=== PATIENT | female | born 1940 | race Caucasian/White ===

== ENCOUNTER → 2019-05-03 11:23 | Outpatient (CLI) | payer MEDICARE, OTHER, SELFPAY ==
[2018-12-12 13:04] VITALS: BMI 26.9
[2019-05-03 15:48] LABS: Absolute Neutrophil Count 3.6 X10^3/uL (2.0-7.7); Basophil# 0.07 X10^3/uL; Basophil% 1.2 % (0-1); Eosinophil# 0.14 X10^3/uL; Eosinophils% 2.4 % (0-5); Hematocrit 38.1 % (37-47); Hemoglobin 12.6 g/dL (12.0-15.0); Mean Corp Hgb Conc 33.1 g/dL (32-36); Mean Corpuscular Hgb 30.1 pg (27.0-32.0); Mean Corpuscular Volume 90.9 fL (81-99); Mean Platelet Vol. 8.6 fl (6.2-12.0); Monocyte# 0.39 X10^3/uL; Monocyte% 6.7 % (0-10); NRBC Flagged by Analyzer 0 % (0-5); Neutrophil # 3.55 X10^3/uL (2.7-7.7); Neutrophil % 60.5 % (47-70); Platelet Count 284 K/mm3 (150-450); RBC Distribution Width CV 12.5 % (11.6-14.6); RBC Distribution Width SD 41.1 fl (35.1-43.9); Red Blood Count 4.19 M/mm3 (4.2-5.4); White Blood Count 5.9 K/mm3 (4.4-11.0)
[2019-05-03 16:59] LABS: Anion Gap 6 (5-15); BUN 16 mg/dL (7-18); BUN/Creat Ratio 16.2 RATIO (10-20); Calcium,Total 9.1 mg/dL (8.5-10.1); Chloride 109 mmol/L (98-107); Creatinine, Serum 0.99 mg/dL (0.55-1.02); EST Glomerular Filtration Rate 58 mL/min (>60); Est Glom Filt Rate - Afr Amer 70 mL/min (>60); Glucose 92 mg/dL (74-106); Potassium 4.7 mmol/L (3.5-5.1); Sodium Level 143 mmol/L (136-145); Thyroid Stim Hormone (TSH) 5.34 uIU/mL (0.358-3.74)
== END ==
PROVIDERS: Family Provider Family Medicine; PCP Family Medicine; Visit Provider Family Medicine
DX: I10 Essential (primary) hypertension (principal); F32.9 Major depressive disorder, single episode, unspecified
CPT/HCPCS: 36415; 80048; 84443; 85025

== ENCOUNTER → 2019-05-15 10:26 | Outpatient (CLI) | payer MEDICARE, OTHER, SELFPAY ==
[2018-12-12 13:04] VITALS: BMI 26.9
--- NOTE | 2019-05-15 10:27 | BI_ITS ---
MAMMOGRAPHY - BILATERAL SCREENING REASON FOR EXAM: Female, 79 years old. Routine annual screening examination. PERTINENT HISTORY: Non-contributory. History of remote bilateral excisional breast biopsies. TECHNIQUE: Digital bilateral breast rona (3D mammographic acquisition) in the CC and MLO projections. 2-D mediolateral oblique (MLO) and craniocaudad (CC) views of both breasts were obtained. CAD: Full Field Digital Mammography with Computer Added Detection was performed. COMPARISON: Comparison is made with prior study dated July 23, 2015 and February 12, 2014. FINDINGS: Breast Composition: The breasts are heterogeneously dense, which may obscure small masses. There are no dominant masses or suspicious calcifications. Stable 1 cm calcified nodule in the deep midportion of the right breast in keeping with fibroadenoma. Stable scattered bilateral secretory calcifications. Stable small bilateral axillary lymph nodes. No other significant abnormalities are identified. There has been no significant change since the prior study. BI/SCREEN MAMM (CAD) W/RONA BILAT IMPRESSION: Stable bilateral screening mammogram. Yearly follow-up mammogram recommended. (A) ASSESSMENT CATEGORY: BIRADS Category 2: Benign. A letter regarding these results will be sent to the patient by the facility within 30 days. Approximately 10% of breast cancers are not detected by mammography. A normal mammogram should not delay biopsy of a clinically suspicious abnormality. [id number] Electronically Signed: Jem Rivera, at 12:29 EDT , Service support ,
== END ==
PROVIDERS: Family Provider Family Medicine; PCP Family Medicine; Referring Provider Family Medicine; Visit Provider Family Medicine
DX: Z12.31 Encounter for screening mammogram for malignant neoplasm of breast (principal)
CPT/HCPCS: 77063; 77067

== ENCOUNTER → 2019-06-23 14:51 | Outpatient (CLI) | payer MEDICARE, OTHER, SELFPAY ==
[2018-12-12 13:04] VITALS: BMI 26.9
[2019-06-23 16:41] LABS: T4 Free Direct 0.79 ng/dL (0.76-1.46); Thyroid Stim Hormone (TSH) 2.88 uIU/mL (0.358-3.74)
== END ==
PROVIDERS: Family Provider Family Medicine; PCP Family Medicine; Visit Provider Family Medicine
DX: E03.9 Hypothyroidism, unspecified (principal)
CPT/HCPCS: 36415; 84439; 84443

== ENCOUNTER → 2020-02-07 12:40 | Outpatient (CLI) | payer MEDICARE, OTHER, SELFPAY ==
[2020-01-24 11:43] VITALS: BMI 29.3
== END ==
PROVIDERS: PCP Family Medicine; Referring Provider Internal Medicine Cardiovascular Disease; Visit Provider Internal Medicine Cardiovascular Disease
DX: I48.91 Unspecified atrial fibrillation (principal); I49.1 Atrial premature depolarization; I10 Essential (primary) hypertension
CPT/HCPCS: 93225; 93226

== ENCOUNTER → 2020-02-08 13:23 | Outpatient (CLI) | payer MEDICARE, OTHER, SELFPAY ==
[2020-01-24 11:43] VITALS: BMI 29.3
--- NOTE | 2020-02-08 13:25 | ECHOCS_ITS ---
Reason For Study: A. fib Procedure This was a 2D Doppler, Color Flow transthoracic echocardiogram. The study was technically difficult. Exam performed in department. Left Ventricle Normal LV size. Left ventricular systolic function is normal. The estimated ejection fraction is 65 %. Stage 1 diastolic dysfunction. No regional wall motion abnormalities noted. Right Ventricle Normal RV size. Normal systolic function. Atria Normal left atrium. Normal right atrium. Mitral Valve Normal mitral valve. Tricuspid Valve Normal tricuspid valve. Mild (1+) tricuspid valve insufficiency. Pulmonary artery systolic pressure is 26 mmHg. Aortic Valve Normal aortic valve. Trivial eccentric aortic valve insufficiency. Pulmonic Valve Normal pulmonic valve. Great Vessels Calcified aortic root. The pulmonary artery is normal size. Normal inferior vena cava. Pericardium/Pleural No pericardial effusion. Medication 22 gauge I.V. with prn adaptor inserted into right arm. Diluted definity 2ml given slow IV push to enhance endocardial definition. MMode/2D Measurements & Calculations LVIDd: 3.9 cm IVSd: 1.1 cm Ao root diam: 2.8 cm LVIDs: 1.9 cm LVPWd: 0.97 cm RVDd: 3.1 cm FS: 51.7 % LAV(MOD-bp): 33.5 ml LA A4 area: 13.5 cm2 LA dimension(2D): 2.9 cm LAV(MOD-bp) Indexed: 17.5 ml/m2 LAV(MOD-sp2): 34.2 ml LAV(MOD-sp4): 32.0 ml RA A4 area: 9.2 cm2 Doppler Measurements & Calculations MV E max manuel: 55.1 cm/sec Lat Peak E' Manuel: 7.9 cm/sec Med Peak E' Manuel: 3.9 cm/sec MV A max manuel: 104.2 cm/sec E/E' lat: 7.0 E/E' med: 14.0 MV E/A: 0.53 Ao V2 max: 156.0 cm/sec LV V1 max: 124.6 cm/sec PA V2 max: 108.6 cm/sec Ao max P.3 mmHg LV V1 max P.4 mmHg TR max manuel: 243.4 cm/sec TR max P.7 mmHg Interpretation Summary Normal LV size. Left ventricular systolic function is normal. The estimated ejection fraction is 65 %. Stage 1 diastolic dysfunction. Contrast injection was performed. Ordering Physician: Phani Wan Referring Physician: Yuriy Davis Performed By: Liza Cooley RDCS
== END ==
PROVIDERS: PCP Family Medicine; Referring Provider Internal Medicine Cardiovascular Disease; Visit Provider Internal Medicine Cardiovascular Disease
DX: I48.91 Unspecified atrial fibrillation (principal); I48.92 Unspecified atrial flutter; R07.89 Other chest pain
CPT/HCPCS: 93306; Q9957; A4216; C8929

== ENCOUNTER → 2020-05-06 10:34 | Outpatient (CLI) | payer MEDICARE, OTHER, SELFPAY ==
[2020-01-24 11:43] VITALS: BMI 29.3
[2020-05-06 12:10] LABS: Absolute Lymphocyte Count 1.42 X10^3/uL (0.83-4.51); Absolute Neutrophil Count 4.4 X10^3/uL (2.0-7.7); Basophil# 0.07 X10^3/uL; Basophil% 1.1 % (0-1); Eosinophil# 0.17 X10^3/uL; Eosinophils% 2.6 % (0-5); Hematocrit 40.7 % (37-47); Hemoglobin 13.4 g/dL (12.0-15.0); Lymphocyte # 1.42 X10^3/ul (4.0); Lymphocyte % 21.8 % (19-41); Mean Corp Hgb Conc 32.9 g/dL (32-36); Mean Corpuscular Hgb 29.3 pg (27.0-32.0); Mean Corpuscular Volume 89.1 fL (81-99); Mean Platelet Vol. 8.8 fl (6.2-12.0); Monocyte# 0.42 X10^3/uL; Monocyte% 6.4 % (0-10); NRBC Flagged by Analyzer 0 % (0-5); Neutrophil # 4.42 X10^3/uL (2.7-7.7); Neutrophil % 67.8 % (47-70); Platelet Count 320 K/mm3 (150-450); RBC Distribution Width CV 12.3 % (11.6-14.6); RBC Distribution Width SD 40.5 fl (35.1-43.9); Red Blood Count 4.57 M/mm3 (4.2-5.4); White Blood Count 6.5 K/mm3 (4.4-11.0)
[2020-05-06 12:45] LABS: Anion Gap 6 (5-15); BUN 13 mg/dL (7-18); BUN/Creat Ratio 12.5 RATIO (10-20); Calcium,Total 9.5 mg/dL (8.5-10.1); Chloride 109 mmol/L (98-107); Creatinine, Serum 1.04 mg/dL (0.55-1.02); EST Glomerular Filtration Rate 54 mL/min (>60); Est Glom Filt Rate - Afr Amer 66 mL/min (>60); Glucose 126 mg/dL (74-106); Magnesium 2.2 mg/dL (1.6-2.6); Sodium Level 140 mmol/L (136-145); T4 Free Direct 0.87 ng/dL (0.76-1.46); Thyroid Stim Hormone (TSH) 5.09 uIU/mL (0.358-3.74)
== END ==
PROVIDERS: PCP Family Medicine; Visit Provider Family Medicine
DX: I10 Essential (primary) hypertension (principal); E03.9 Hypothyroidism, unspecified; I49.9 Cardiac arrhythmia, unspecified
CPT/HCPCS: 36415; 80048; 83735; 84439; 84443; 85025

== ENCOUNTER → 2020-05-10 13:37 | Outpatient (CLI) | payer MEDICARE, OTHER, SELFPAY ==
[2020-01-24 11:43] VITALS: BMI 29.3
--- NOTE | 2020-05-10 13:42 | CT_ITS ---
STUDY: CT CHEST WITHOUT CONTRAST REASON FOR EXAM: Female, 80 years old. PULMONARY NODULES F/U RADIATION DOSAGE (If Supplied By Facility): CTDIvol = ( 17.50 ) mGy, DLP = ( 609.29 ) mGycm TECHNIQUE: Transaxial imaging was performed without the administration of intravenous contrast material. Multiplanar coronal and sagittal images were reformatted. Individualized dose optimization techniques were used for this CT. COMPARISON: Comparison is made with prior study dated 07/18/2015. FINDINGS: Stable 4 mm nodule in the anterior aspect of the right upper lobe as seen on axial image number 1:15. 4 mm noncalcified nodule in the anterior aspect of the right middle lobe. Stable minimal increased markings in the anterior lateral aspect of the lingular segment of the left upper lobe suggestive of scarring. Stable scattered subcentimeter noncalcified nodules which are pleural based in both lower lobes. There is no demonstrated pleural abnormality. There are calcifications of the coronary arteries. Normal mediastinum. Normal hilar regions. Normal unenhanced pulmonary arteries. There is atherosclerotic calcification of the aortic arch . There are multi-level degenerative changes of the thoracic spine. There is no demonstrated abnormality of the visualized upper abdomen. CT/Chest without Contrast IMPRESSION: Stable examination. Electronically Signed: Jem Rivera, at 14:28 EDT , Service support ,
== END ==
PROVIDERS: PCP Family Medicine; Referring Provider Family Medicine; Visit Provider Family Medicine
DX: R93.89 Abnormal findings on diagnostic imaging of other specified body structures (principal)
CPT/HCPCS: 71250

== ENCOUNTER → 2020-05-24 11:34 | Outpatient (CLI) | payer MEDICARE, OTHER, SELFPAY ==
[2020-01-24 11:43] VITALS: BMI 29.3
--- NOTE | 2020-05-24 11:37 | BI_ITS ---
MAMMOGRAPHY - BILATERAL SCREENING REASON FOR EXAM: Female, 80 years old. Routine annual screening examination. PERTINENT HISTORY: Non-contributory. Remote bilateral excisional breast biopsies. TECHNIQUE: Digital bilateral breast rona (3D mammographic acquisition) in the CC and MLO projections. 2-D mediolateral oblique (MLO) and craniocaudad (CC) views of both breasts were obtained. CAD: Full Field Digital Mammography with Computer Added Detection was performed. COMPARISON: Comparison is made with prior study dated 05/15/2019 and 07/23/2015. FINDINGS: Breast Composition: The breasts are heterogeneously dense, which may obscure small masses. There are no dominant masses or suspicious calcifications. Scattered benign-appearing bilateral calcifications. Stable benign-appearing axillary lymph nodes. Stable calcified fibroadenoma in the deep midportion of the right breast. No other significant abnormalities are identified. There has been no significant change since the prior study. BI/SCREEN MAMM (CAD) W/RONA BILAT IMPRESSION: Stable bilateral screening mammogram. Yearly follow-up mammogram recommended. (A) ASSESSMENT CATEGORY: BIRADS Category 2: Benign. A letter regarding these results will be sent to the patient by the facility within 30 days. Approximately 10% of breast cancers are not detected by mammography. A normal mammogram should not delay biopsy of a clinically suspicious abnormality. [id number] Electronically Signed: Jem Rivera, at 12:48 EDT , Service support ,
== END ==
PROVIDERS: PCP Family Medicine; Referring Provider Family Medicine; Visit Provider Family Medicine
DX: Z12.31 Encounter for screening mammogram for malignant neoplasm of breast (principal)
CPT/HCPCS: 77063; 77067

== ENCOUNTER → 2021-07-01 12:13 | Outpatient (CLI) | payer MEDICARE, OTHER, SELFPAY ==
--- NOTE | 2021-07-01 12:17 | BI_ITS ---
MAMMOGRAPHY - BILATERAL SCREENING REASON FOR EXAM: Female, 81 years old. Routine annual screening examination. PERTINENT HISTORY: Non-contributory. Remote bilateral excisional breast biopsies. TECHNIQUE: Digital bilateral breast rona (3D mammographic acquisition) in the CC and MLO projections. 2-D mediolateral oblique (MLO) and craniocaudad (CC) views of both breasts were obtained. CAD: Full Field Digital Mammography with Computer Added Detection was performed. COMPARISON: Comparison is made with prior study dated 05/24/2020 and 05/15/2019. FINDINGS: Breast Composition: The breasts are heterogeneously dense, which may obscure small masses. There are no dominant masses or suspicious calcifications. Stable right lateral secretory calcifications. Stable benign-appearing bilateral axillary lymph nodes. Stable calcified fibroadenoma and the deep midportion of the right breast No other significant abnormalities are identified. There has been no significant change since the prior study. BI/SCRN MAMM (CAD)W/RONA BILAT IMPRESSION: Stable bilateral screening mammogram. Yearly follow-up mammogram recommended. (A) ASSESSMENT CATEGORY: BIRADS Category 2: Benign. A letter regarding these results will be sent to the patient by the facility within 30 days. Approximately 10% of breast cancers are not detected by mammography. A normal mammogram should not delay biopsy of a clinically suspicious abnormality. [id number] Electronically Signed: Jem Rivera MD at 10:23 EDT , Service support ,
== END ==
PROVIDERS: PCP Family Medicine; Referring Provider Family Medicine; Visit Provider Family Medicine
DX: Z12.31 Encounter for screening mammogram for malignant neoplasm of breast (principal)
CPT/HCPCS: 77063; 77067

== ENCOUNTER → 2022-07-07 | Outpatient (CLI) | payer MEDICARE, OTHER, SELFPAY ==
[2022-07-07 12:33] LABS: Absolute Lymphocyte Count 2.23 X10^3/uL (0.83-4.51); Absolute Neutrophil Count 3.8 X10^3/uL (2.0-7.7); Basophil# 0.07 X10^3/uL; Eosinophil# 0.25 X10^3/uL; Eosinophils% 3.7 % (0-5); Hematocrit 40.3 % (37-47); Hemoglobin 13.5 g/dL (12.0-15.0); Lymphocyte # 2.23 X10^3/ul (0.83-4.51); Lymphocyte % 33.3 % (19-41); Mean Corp Hgb Conc 33.5 g/dL (32-36); Mean Corpuscular Hgb 30.1 pg (27.0-32.0); Mean Corpuscular Volume 89.8 fL (81-99); Mean Platelet Vol. 8.4 fl (6.2-12.0); Monocyte# 0.32 X10^3/uL; Monocyte% 4.8 % (0-10); NRBC Flagged by Analyzer 0 % (0-5); Neutrophil % 56.9 % (47-70); Platelet Count 332 K/mm3 (150-450); RBC Distribution Width CV 12.2 % (11.6-14.6); RBC Distribution Width SD 39.9 fl (35.1-43.9); Red Blood Count 4.49 M/mm3 (4.2-5.4); White Blood Count 6.7 K/mm3 (4.4-11.0)
[2022-07-07 12:48] LABS: ALB/GLOB Ratio 0.8 RATIO (0.9-2.4); AST(SGOT) 19 U/L (15-37); Alanine Aminotransfer ALT/SGPT 19 U/L (13-56); Albumin, Serum 3.8 g/dL (3.2-5.0); Alkaline Phosphatase 56 U/L (45-117); Anion Gap 5 (5-15); BUN 17 mg/dL (7-18); Calcium,Total 9.5 mg/dL (8.5-10.1); Chloride 106 mmol/L (98-107); Cholesterol 205 mg/dL (200); Creatinine, Serum 1.21 mg/dL (0.55-1.02); EST Glomerular Filtration Rate 45 mL/min (>60); Est Glom Filt Rate - Afr Amer 55 mL/min (>60); Globulin 4.5 g/dL (2.2-4.2); Glucose 113 mg/dL (74-106); High Density Lipoprotein 40 mg/dL; Potassium 4.6 mmol/L (3.5-5.1); Protein, Total 8.3 g/dL (6.4-8.2); Sodium Level 139 mmol/L (136-145); T4 Free Direct 0.85 ng/dL (0.76-1.46); Thyroid Stim Hormone (TSH) 4.58 uIU/mL (0.358-3.74); Triglycerides 158 mg/dL; Very Low Density Lipoprotein 32 mg/dL (5-40)
[2022-07-07 13:24] LABS: PTHIN 66.6 pg/mL (18.4-80.1)
== END | disposition home or self-care (01) ==
LOC: BFHLAB 10:37
PROVIDERS: PCP Family Medicine; Visit Provider Family Medicine
DX: Z00.00 Encounter for general adult medical examination without abnormal findings (principal); E03.9 Hypothyroidism, unspecified; I10 Essential (primary) hypertension; F32.9 Major depressive disorder, single episode, unspecified
CPT/HCPCS: 36415; 80053; 80061; 82330; 83970; 84439; 84443; 85025

== ENCOUNTER → 2022-07-22 | Outpatient (CLI) | payer MEDICARE, OTHER, SELFPAY ==
[2022-07-24 16:09] LABS: PROEL- A/G Ratio 1.1 (0.7-1.7); PROEL- Albumin 3.9 g/dL (2.9-4.4); PROEL- Alpha-1 Globulin 0.2 g/dL (0.0-0.4); PROEL- Alpha-2 Globulin 0.9 g/dL (0.4-1.0); PROEL- Beta Globulin 1.2 g/dL (0.7-1.3); PROEL- Gamma Globulin 1.2 g/dL (0.4-1.8); PROEL- Globulin, Total 3.5 g/dL (2.2-3.9); PROEL- TOTAL PROTEIN 7.4 g/dL (6.0-8.5)
== END | disposition home or self-care (01) ==
PROVIDERS: PCP Family Medicine; Visit Provider Family Medicine
DX: R79.9 Abnormal finding of blood chemistry, unspecified (principal)
CPT/HCPCS: 84165

== ENCOUNTER → 2022-12-17 | Outpatient (CLI) | payer MEDICARE, OTHER, SELFPAY ==
--- NOTE | 2022-12-17 09:06 | RAD_ITS ---
EXAM: FL Esophagram, Double Contrast HISTORY: DYSPHAGIA COMPARISON: None Technique: Air contrast, 57 seconds of fluoroscopy, 6 images, dose of 22.15mGy FINDINGS: Swallowing was initiated normally. No nasopharyngeal reflux or aspiration. No Zenker''s diverticulum noted on the lateral view. Normal peristaltic activity noted in the proximal and mid esophagus. The distal esophagus demonstrates tertiary contractions with both intraesophageal and significant GE reflux noted. No evidence of a hiatal hernia but there was a patulous GE junction with significant GE reflux noted particularly when patient was placed in the supine position. No evidence of a hiatal hernia. 13 mm barium pill passed through the esophagus without difficulty. 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 Electronically Signed: Ronald Kirk MD at 9:43 EDT ,
== END | disposition home or self-care (01) ==
LOC: RAD 08:58
PROVIDERS: PCP Family Medicine; Visit Provider Otolaryngology
DX: R13.13 Dysphagia, pharyngeal phase (principal)
CPT/HCPCS: 74221

== ENCOUNTER → 2023-07-01 | Outpatient (CLI) | payer MEDICARE, OTHER, SELFPAY ==
[2023-07-01 12:07] LABS: Absolute Lymphocyte Count 1.43 X10^3/uL (0.83-4.51); Absolute Neutrophil Count 2.9 X10^3/uL (2.0-7.7); Basophil# 0.05 X10^3/uL; Eosinophil# 0.16 X10^3/uL; Eosinophils% 3.2 % (0-5); Hematocrit 30.6 % (37-47); Hemoglobin 9.1 g/dL (12.0-15.0); Lymphocyte # 1.43 X10^3/ul (0.83-4.51); Lymphocyte % 28.5 % (19-41); Mean Corp Hgb Conc 29.7 g/dL (32-36); Mean Corpuscular Volume 77.3 fL (81-99); Mean Platelet Vol. 8.6 fl (6.2-12.0); Monocyte# 0.39 X10^3/uL; Monocyte% 7.8 % (0-10); NRBC Flagged by Analyzer 0 % (0-5); Neutrophil # 2.92 X10^3/uL (2.7-7.7); Neutrophil % 58.3 % (47-70); Platelet Count 309 K/mm3 (150-450); RBC Distribution Width CV 15.1 % (11.6-14.6); RBC Distribution Width SD 42.5 fl (35.1-43.9); Red Blood Count 3.96 M/mm3 (4.2-5.4)
[2023-07-01 13:14] LABS: ALB/GLOB Ratio 0.8 RATIO (0.9-2.4); AST(SGOT) 11 U/L (15-37); Alanine Aminotransfer ALT/SGPT 14 U/L (13-56); Albumin, Serum 3.5 g/dL (3.2-5.0); Alkaline Phosphatase 70 U/L (45-117); Anion Gap 5 (5-15); BUN 21 mg/dL (7-18); BUN/Creat Ratio 16.7 RATIO (10-20); Chloride 109 mmol/L (98-107); Cholesterol 179 mg/dL (200); Creatinine, Serum 1.26 mg/dL (0.55-1.02); EST Glomerular Filtration Rate 43 mL/min (>60); Est Glom Filt Rate - Afr Amer 52 mL/min (>60); Globulin 4.3 g/dL (2.2-4.2); Glucose 102 mg/dL (74-106); High Density Lipoprotein 39 mg/dL; Potassium 4.5 mmol/L (3.5-5.1); Protein, Total 7.8 g/dL (6.4-8.2); Sodium Level 139 mmol/L (136-145); T4 Free Direct 0.83 ng/dL (0.76-1.46); Thyroid Stim Hormone (TSH) 3.19 uIU/mL (0.358-3.74); Triglycerides 160 mg/dL; Very Low Density Lipoprotein 32 mg/dL (5-40)
== END | disposition home or self-care (01) ==
LOC: LAB 11:22
PROVIDERS: PCP Family Medicine; Referring Provider Family Medicine; Visit Provider Family Medicine
DX: Z00.00 Encounter for general adult medical examination without abnormal findings (principal); I10 Essential (primary) hypertension; K21.9 Gastro-esophageal reflux disease without esophagitis; E03.8 Other specified hypothyroidism
CPT/HCPCS: 36415; 80053; 80061; 84439; 84443; 85025

== ENCOUNTER 2024-01-21 14:50 | Emergency (ER) | payer MEDICARE, OTHER, SELFPAY ==
[2024-01-21] VITALS (10 sets, daily range): BP systolic 93–154; BP diastolic 57–81; PULSE 69–97; RESP 16–26; TEMP 36.3–36.6; O2SAT 97–100; BMI 28.3
--- NOTE | 2024-01-21 15:13 | EKG12_ITS ---
Test Reason : CP Blood Pressure : / mmHG Vent. Rate : 086 BPM Atrial Rate : 086 BPM P-R Int : 188 ms QRS Dur : 108 ms QT Int : 348 ms P-R-T Axes : 030 -49 104 degrees QTc Int : 416 ms Sinus rhythm with Premature atrial complexes Left axis deviation Incomplete left bundle branch block Left ventricular hypertrophy with repolarization abnormality ( R in aVL , Jules product , Romhilt-E stes ) Abnormal ECG Confirmed by Atilio oMntana ([id number]), development editor RENETTA LOPEZ ([id number]) on 01/24/2024 8:48:16 AM Referred By: KAYLIN/KARINA Confirmed By:Atilio Montana
--- NOTE | 2024-01-21 15:15 | ED.VIS.CHEST ---
HPI History of Present Illness Chief Complaint: Chest Pain Informant: patient Narrative Narrative: 83-year-old female with nonpleuritic substernal chest heaviness, feels like an elephant sitting on my chest that started the day before yesterday and has been constant ever since. Nonexertional, position changes do not seem to make a difference, she has not been short of breath although she did feel lightheaded a couple times, no palpitations. No nausea, vomiting, or sweats. She has felt malaise/fatigue since this started and both arms feel heavy but no pain or numbness. No history of heart problems. No history of GERD that she knows of. She takes medication for blood pressure. CVD Risk Factors: Positive for Hypertension; Negative for Diabetes, Hypercholesterolemia, Family History 1' </=55 or Smoking PE Risk Factors: Negative for Recent Travel/Surgery, Recent Immobilization, Prior DVT or PE, Cancer or OCP + Smoking + >/=35 PFSH PFSH Medical History Lung nodule Subclinical hypothyroidism Obesity Premature atrial contractions Premature ventricular contractions Fibromyalgia DDD (degenerative disc disease) Depression IBS (irritable bowel syndrome) KEARA (obstructive sleep apnea) History of breast cancer History of depression Benign essential hypertension Home Medications ?Medication ?Instructions ?Recorded ?Last Taken ?Type venlafaxine 150 mg 150 mg PO DAILY 08/05/15 Unknown History capsule,extended release 24 hr amitriptyline 25 mg tablet 25 mg PO QHS PRN 01/24/20 Unknown History losartan 50 mg tablet 50 mg PO DAILY 01/24/20 Unknown History cholecalciferol (vitamin D3) 25 25 mcg PO DAILY 08/22/20 Unknown History mcg (1,000 unit) capsule Allergy/AdvReac Type Severity Reaction Status Date / Time lisinopril AdvReac Mild Other-cough Verified 01/21/24 14:50 Family History Mother CVA (cerebral vascular accident) Alzheimer disease Sister CAD (coronary artery disease) Father Kidney failure Surgical History History of lumpectomy of both breasts History of left heart catheterization (08/06/15) Cataract extraction status of right eye History of hysterectomy Social History Smoking Status: Never smoker second hand exposure: No alcohol intake: never substance use type: does not use ROS ROS ED Constitutional Constitutional ED: Reports fatigue; Denies chills or fever(s) Eyes Eyes: Denies change in vision or diplopia ENT ENT ED: Denies rhinorrhea or sore throat Cardiovascular Cardiovascular: Reports as per HPI and chest pain; Denies palpitations Respiratory/Chest Respiratory/Chest: Denies cough or dyspnea Gastrointestinal Gastrointestinal: Denies abdominal pain, diarrhea, nausea or vomiting Genitourinary Genitourinary ED: Denies dysuria or hematuria Musculoskeletal Musculoskeletal: Denies back pain or neck pain Integumentary Denies abscess or rash Neurologic Neurologic: Denies headache(s), paresthesias or weakness Psychiatric Psychiatric: Denies suicidal ideation or suicidal thoughts EXAM Physical Exam Const Vital Signs: 01/21/24 14:51 01/21/24 14:51 01/21/24 15:33 Temperature 97.3 F L 97.3 F L Temperature Source Temporal Temporal Pulse Rate 94 97 80 Respiratory Rate 20 H 20 H Respiratory Effort Blood Pressure 143/81 H 143/81 H 129/68 H Blood Pressure Mean 101 101 Pulse Ox 97 100 Oxygen Delivery Method Room Air Room Air 01/21/24 15:34 01/21/24 15:38 01/21/24 15:39 Temperature Temperature Source Pulse Rate 95 Respiratory Rate Respiratory Effort Normal Non-Labored Blood Pressure 117/68 Blood Pressure Mean Pulse Ox 99 Oxygen Delivery Method Room Air 01/21/24 15:50 01/21/24 15:52 01/21/24 17:00 Temperature Temperature Source Pulse Rate 82 84 71 Respiratory Rate 22 H 16 Respiratory Effort Blood Pressure 93/68 110/67 134/57 H Blood Pressure Mean 76 81 82 Pulse Ox 97 Oxygen Delivery Method Room Air 01/21/24 19:26 01/21/24 19:30 01/21/24 20:28 Temperature 98 F Temperature Source Pulse Rate 69 70 71 Respiratory Rate 21 H 19 H 26 H Respiratory Effort Blood Pressure 154/69 H Blood Pressure Mean 97 Pulse Ox 97 Oxygen Delivery Method Positive well nourished and well developed General Appearance ED: well developed and NAD HEENT Reports moist mucous membranes normocephalic and atraumatic Eyes PERRL and EOMs intact bilaterally Neck full ROM, supple and no JVD Resp normal respiratory effort and clear to auscultation bilaterally Cardio regular rate and regular rhythm Heart Sounds: murmur systolic I/ soft left sternal border Peripheral Pulses: pulses 2+ throughout GI non-tender and non-distended Auscultation: normoactive bowel sounds Palpation: soft Back/Spine no CVA tenderness General Back: other FROM Extremity normal to inspection General Extremety ED: Negative for edema, pulses abnormal or tenderness General Extremity: Negative for edema or pulses abnormal Neuro oriented x3, CN's II-XII intact bilaterally and no sensory deficits noted Sensorium / Orientation: awake and alert Motor Exam: strength 5/5 throughout Skin no rashes or lesions noted and no wounds Heart Score History: Moderately Suspicious ECG: Nonspecific Repolarization Age: >/= 65 years Risk Factors: 1 or 2 Risk Factors Score: 5 MDM MDM MDM Narrative Medical decision making narrative: Concern about this patient's symptoms, EKG is abnormal but there is nothing to compare it to. However, since she has been having symptoms for 2-3 days with constant discomfort, and looks good clinically, I elected to wait for the troponin to come back. He came back within normal limits. In any time she was given aspirin and nitroglycerin x 2, this did improve her discomfort she said afterwards it was just barely there and she feels better. I discussed all this with Dr. Castillo with cardiology, he agrees this is a butler case especially since she had angiographically normal coronaries in August 2015 after failing a stress test. He recommends performing a delta troponin and if negative/lower, patient is able to be discharged home to follow-up as an outpatient. That was done, the troponin went from 38-34, therefore will discharge her home. In the meantime advised to take baby aspirin every day and follow-up with cardiology as an outpatient. We discussed reasons to return she is comfortable with that plan. Lab Data Attestation: I reviewed the patient's lab results. Labs: Laboratory Results - last 24 hr 01/21/24 01/21/24 15:45 19:35 WBC 6.3 RBC 4.28 Hgb 11.9 L Hct 36.7 L MCV 85.7 MCH 27.8 MCHC 32.4 RDW Std Deviation 43.8 RDW Coeff of Christa 14.1 Plt Count 299 MPV 8.5 Immature Gran % (Auto) 0.300 Neut % (Auto) 65.3 Lymph % (Auto) 24.6 Chambers % (Auto) 6.3 Eos % (Auto) 2.7 Baso % (Auto) 0.8 Absolute Neuts (auto) 4.1 Absolute Lymphs (auto) 1.55 Nucleated RBC % 0 Sodium 138 Potassium 3.8 Chloride 108 H Carbon Dioxide 25.0 Anion Gap 5 BUN 19 H Creatinine 1.39 H Estim Creat Clear Calc 32.65 Est GFR (MDRD) Af Amer 47 L Est GFR (MDRD) Non-Af 38 L BUN/Creatinine Ratio 13.7 Glucose 113 H Calcium 9.2 Troponin I High Sens 38 34 Radiography Diagnostic Testing: Clinical Impression(s) from Imaging Studies Chest X-Ray 01/21/24 15:25 IMPRESSION: No radiographic evidence of acute cardiopulmonary disease. Electronically Signed: Dominic Stevenson MD at 15:35 EDT Reading Location ID and State: [facility] / [place] Tel , Service support , Rhythm Strip Rhythm Strip: Sinus Rhythm Rate: 85 Ectopy: PAC(s) EKG Initial EKG: Attestation: I personally reviewed and interpreted this EKG as follows: Interpretation: Sinus Rhythm, No Acute Injury Pattern, S-T Elevation (0.5 mm 3, aVF only) and S-T Depression (1 mm laterally 1, aVL with associated T wave inversions) Prior EKG tracings: not available for review Management Discussion w/another healthcare provider: [employer] Services [employer] ([facility]) Discharge Plan Triage Chief Complaint: Chest Pain ED Provider: Haresh Magana Dx/Rx/DC Orders Clinical Impression: Chest pain, unspecified Instructions: ED Chest Pain, Uncertain Cause Prescriptions: No Action losartan 50 mg tablet 50 mg PO DAILY cholecalciferol (vitamin D3) 25 mcg (1,000 unit) capsule 25 mcg PO DAILY venlafaxine 150 MG capsule 150 mg PO DAILY amitriptyline 25 mg tablet 25 mg PO QHS PRN Primary Care Provider: Kathy Meza Referrals: Kathy Meza MD [Primary Care Provider] - Mulu Luo PA [Med Staff - Adv Practice Prof] - As soon as possible (or other available provider) Print Language: Greenlandic Disposition Disposition: Home, Self Care
--- NOTE | 2024-01-21 15:25 | RAD_ITS ---
INDICATION: chest pain EXAMINATION/TECHNIQUE: X-RAY - XR Chest 1 View COMPARISON: No relevant prior comparison study available FINDINGS: LINES/DEVICES: None. LUNGS: Minimal atelectatic changes in the left lung base. No focal infiltrate is seen. No evidence of pleural effusions. MEDIASTINUM AND CARDIOVASCULAR STRUCTURES: Cardiac silhouette not enlarged. Central airways and mediastinal contour are unremarkable. BONES AND SOFT TISSUES: Unremarkable. RAD/Chest 1 View (Portable) IMPRESSION: No radiographic evidence of acute cardiopulmonary disease. Electronically Signed: Dominic Stevenson MD at 15:35 EDT ,
[2024-01-21] MEDS: 0.9% Normal Saline (1000mL) 1,000 ML 150 ML IV (15:29)
[2024-01-21] MEDS: Aspirin 81 MG TAB.CHEW 324 MG PO (15:29)
[2024-01-21] MEDS: Nitroglycerin SL (ED/IMG/CATH) 0.4 MG TABLET SL ×2 (15:33→15:38)
--- NOTE | 2024-01-21 15:55 | ED.RN ---
Patient was administered 2 doses of nitroglycerin w/ pain improving. Patient blood pressure is noted to drop and third dose was withheld.
[2024-01-21 16:15] LABS: Absolute Lymphocyte Count 1.55 X10^3/uL (0.83-4.51); Absolute Neutrophil Count 4.1 X10^3/uL (2.0-7.7); Basophil# 0.05 X10^3/uL; Basophil% 0.8 % (0-1); Eosinophil# 0.17 X10^3/uL; Eosinophils% 2.7 % (0-5); Hematocrit 36.7 % (37-47); Hemoglobin 11.9 g/dL (12.0-15.0); Lymphocyte # 1.55 X10^3/ul (0.83-4.51); Lymphocyte % 24.6 % (19-41); Mean Corp Hgb Conc 32.4 g/dL (32-36); Mean Corpuscular Hgb 27.8 pg (27.0-32.0); Mean Corpuscular Volume 85.7 fL (81-99); Mean Platelet Vol. 8.5 fl (6.2-12.0); Monocyte% 6.3 % (0-10); NRBC Flagged by Analyzer 0 % (0-5); Neutrophil # 4.12 X10^3/uL (2.7-7.7); Neutrophil % 65.3 % (47-70); Platelet Count 299 K/mm3 (150-450); RBC Distribution Width CV 14.1 % (11.6-14.6); RBC Distribution Width SD 43.8 fl (35.1-43.9); Red Blood Count 4.28 M/mm3 (4.2-5.4); White Blood Count 6.3 K/mm3 (4.4-11.0)
[2024-01-21 16:24] LABS: Anion Gap 5 (5-15); BUN 19 mg/dL (7-18); BUN/Creat Ratio 13.7 RATIO (10-20); Calcium,Total 9.2 mg/dL (8.5-10.1); Chloride 108 mmol/L (98-107); Creatinine, Serum 1.39 mg/dL (0.55-1.02); EST Glomerular Filtration Rate 38 mL/min (>60); Est Glom Filt Rate - Afr Amer 47 mL/min (>60); Estimated Creatinine Clearance 32.65 ml/min; Glucose 113 mg/dL (74-106); Potassium 3.8 mmol/L (3.5-5.1); Sodium Level 138 mmol/L (136-145); Troponin-I HS 38 pg/mL (3.0-54.0)
[2024-01-21 20:11] LABS: Troponin-I HS 34 pg/mL (3.0-54.0)
== END 2024-01-21 21:14 | disposition home or self-care (01) ==
PROVIDERS: Emergency Provider Emergency Medicine; PCP Family Medicine; Visit Provider Emergency Medicine
DX: R07.9 Chest pain, unspecified (principal); G47.33 Obstructive sleep apnea (adult) (pediatric)
CPT/HCPCS: 71045; 80048; 84484; 85025; 93005; 96360; 96361; 99283; J7030; A4216

== ENCOUNTER 2024-03-06 13:28 | Emergency (ER) | payer MEDICARE, OTHER, SELFPAY ==
[2024-03-06 13:31] VITALS: BP 131/97; PULSE 93; RESP 16; TEMP 36.3; O2SAT 96; BMI 28.1
--- NOTE | 2024-03-06 13:45 | RAD_ITS ---
STUDY: X-RAY - LEFT HAND REASON FOR EXAM: Female, 83 years old. Fall. Pain. TECHNIQUE: 3 view(s) of the hand. COMPARISON: None. FINDINGS: Osteopenia. Diffuse mild osteoarthrosis most marked at the first CMC joint. Transverse slightly impacted minimally displaced fracture of the base of the proximal phalanx of the fifth digit with fixed flexion deformities of the PIP and DIP joints of the fifth digit. Soft tissue swelling at the fracture site. RAD/Hand Min 3 Views IMPRESSION: Osteopenia with osteoarthritic changes and fracture of the proximal aspect of the proximal phalanx of the fifth digit with fixed flexion deformities of the PIP and DIP joints of the fifth digit. Electronically Signed: Amari Barillas MD at 14:09 EDT ,
--- NOTE | 2024-03-06 14:35 | CT_ITS ---
INDICATION: fall, injury EXAMINATION: CT BRAIN - CT Head or Brain W/O Contrast Injection TECHNIQUE: Multiple axial images were obtained of the head without intravenous contrast. The protocol utilizes one or more of the following dose reduction techniques: automated exposure control, adjustment of mA and/or kV according to patient size,and/or use of iterative reconstruction technique. IV Contrast dosage and agent: None. RADIATION DOSAGE (If Supplied By Facility): CTDIvol = ( 44.99 ) mGy, DLP = ( 796.11 ) mGycm COMPARISON: No relevant prior comparison study available FINDINGS: BRAIN PARENCHYMA: No intra- or extra-axial hemorrhage. No evidence of acute infarct. No intracranial mass or mass effect. There is preservation of the butler/white matter interface. Periventricular deep white matter changes likely due to chronic microvascular disease. Posterior fossa structures are unremarkable. Atherosclerotic calcifications of the cavernous internal carotid arteries. CSF SPACES: Appropriate for age. No hydrocephalus. Basal cisterns are patent. CALVARIUM, SKULL BASE, PARANASAL SINUSES AND MASTOID AIR CELLS: Clear. No discrete lytic or blastic abnormalities. ORBITS: Both globes, extraocular muscles, optic nerves and retrobulbar fat appear unremarkable. CT/Brain/Head without Contrast IMPRESSION: No acute intracranial process. Chronic involutional changes of the brain. Electronically Signed: Dominic Stevenson MD at 15:11 EDT ,
--- NOTE | 2024-03-06 14:35 | EDS_ITS ---
HPI History of Present Illness Chief Complaint: Fall Detail of Chief Complaint: Fall Informant: patient Narrative Narrative: Patient presents to the emergency department after sustaining a fall. Patient states that she was taking the trash down the driveway when it got out in front of her and she tried a keep it from falling and she fell and struck her head on the asphalt driveway. No loss of consciousness. She sustained an injury to her left small finger. She abraded her left knee and left elbow. She also has a small abrasion on her right hand. Unsure of her last tetanus shot. She denies any neck pain. She has been ambulatory since the fall. Patient is right-hand dominant. [facility] Medical History Lung nodule Subclinical hypothyroidism Obesity Premature atrial contractions Premature ventricular contractions Fibromyalgia DDD (degenerative disc disease) Depression IBS (irritable bowel syndrome) KEARA (obstructive sleep apnea) History of breast cancer History of depression Benign essential hypertension Home Medications ?Medication ?Instructions ?Recorded ?Last Taken ?Type venlafaxine 150 mg 150 mg PO DAILY 08/05/15 Unknown History capsule,extended release 24 hr amitriptyline 25 mg tablet 25 mg PO QHS PRN 01/24/20 Unknown History losartan 50 mg tablet 50 mg PO DAILY 01/24/20 Unknown History cholecalciferol (vitamin D3) 25 25 mcg PO DAILY 08/22/20 Unknown History mcg (1,000 unit) capsule hydrocodone-acetaminophen 5-325mg 1 tab PO Q4H PRN PRN Pain 2 days 03/06/24 Unknown Rx 5mg-325mg #10 TABLETS Allergy/AdvReac Type Severity Reaction Status Date / Time lisinopril AdvReac Mild Other-cough Verified 03/06/24 13:34 Family History Mother CVA (cerebral vascular accident) Alzheimer disease Sister CAD (coronary artery disease) Father Kidney failure Surgical History History of lumpectomy of both breasts History of left heart catheterization (08/06/15) Cataract extraction status of right eye History of hysterectomy Social History Smoking Status: Never smoker second hand exposure: No alcohol intake: never substance use type: does not use ROS ROS ED Review of Systems ROS Unobtainable: other Constitutional Constitutional ED: Reports lethargy; Denies chills, fever(s), sweats or weight loss Eyes Eyes: Denies blurry vision, change in vision or diplopia ENT ENT ED: Denies rhinorrhea or sore throat Cardiovascular Cardiovascular: Denies chest pain, orthopnea or racing heartbeat Respiratory/Chest Respiratory/Chest: Denies cough, dyspnea, dyspnea on exertion, orthopnea or sputum Gastrointestinal Gastrointestinal: Denies abdominal pain, diarrhea, nausea or vomiting Genitourinary Genitourinary ED: Denies dysuria, hematuria or urinary frequency Musculoskeletal Musculoskeletal: Reports other Details: Left small finger injury ; Denies arthralgias, back pain, myalgias or neck pain Integumentary Reports Abrasions; Denies abscess or rash Neurologic Neurologic: Reports headache(s); Denies weakness Psychiatric Psychiatric: Denies anxiety, depression or suicidal thoughts Endocrine Endocrinology: Denies polydipsia, polyphagia or polyuria Hematologic/Lymphatic Hematologic/Lymphatic: Denies easy bleeding, easy bruising or lymphadenopathy Allergic/Immunologic Allergic/Immunologic ED: Denies mouth swelling, tongue swelling or urticaria EXAM Physical Exam Const Vital Signs: 03/06/24 13:31 03/06/24 14:22 Temperature 97.4 F L Temperature Source Temporal Pulse Rate 93 Respiratory Rate 16 Respiratory Effort Normal Non-Labored Respiratory Depth Normal Respiratory Pattern Normal Blood Pressure 131/97 H Blood Pressure Mean 108 Pulse Ox 96 Oxygen Delivery Method Room Air Room Air Positive well nourished and well developed General Appearance ED: well developed and NAD HEENT Reports TM's clear and moist mucous membranes HEENT Narrative: Patient with contusion to right forehead with superficial abrasions. Superficial abrasions to the nose. Without significant tenderness to the nasal bone or obvious deformity. Pupils equal react light bilaterally. No hemotympanum. normocephalic and atraumatic; Negative for trauma or tenderness Tympanic Membrane ED: Yes TM's clear Eyes PERRL and EOMs intact bilaterally General Eye ED: Negative for pale conjunctiva or scleral icterus Neck no lymphadenopathy, supple and no JVD General: Negative for tenderness Chest Wall inspection of chest normal and palpation of chest normal Chest: Negative for tenderness Resp normal respiratory effort and clear to auscultation bilaterally Effort and Inspection: Negative for respiratory distress or pain with movement Auscultation: Negative for rhonchi, wheezes or diminished lung sounds Cardio regular rate, regular rhythm, S1 normal heart sound, S2 normal heart sound and no murmurs Peripheral Pulses: pulses 2+ throughout GI normal to inspection, nondistended, normoactive bowel sounds, soft to palpation, non-tender, non-distended and no masses Back/Spine no CVA tenderness and no thoracic nor lumbar tenderness Extremity normal to inspection Extremity Narrative: Left elbow-patient has some mild soft tissue swelling and ecchymosis to the posterior aspect of the elbow with no real bony tenderness on exam. She has normal range of motion and she is neurovascular intact distally. Left hand-patient has obvious deformity to the small finger with some soft tissue swelling and tenderness over the proximal phalanx. Left knee-patient has some superficial abrasions over the patella without any significant bony tenderness on exam. She has normal range of motion. Neurovascular intact distally. Right hand-patient has superficial abrasion over the fifth MCP joint without any bony tenderness. No deformity. Normal range of motion flexion extension. She is neurovascular intact distally. General Extremety ED: Negative for edema General Extremity: Negative for edema Neuro oriented x3, CN's II-XII intact bilaterally, no sensory deficits noted and gait normal Sensorium / Orientation: awake, alert, oriented to person, oriented to place and oriented to time Motor Exam: strength 5/5 throughout and strength abnormal Psych mental status grossly normal Skin no rashes or lesions noted and no wounds MDM MDM MDM Narrative Medical decision making narrative: Patient presents to the emergency department after sustaining a fall today and striking her head. She has multiple abrasions and contusions. She has obvious deformity to the left small finger. X-rays of the left hand obtained showed a fracture at the base of the proximal phalanx of the small finger with rotational deformity. I did obtain a CT scan of the brain without contrast that was unremarkable. Patient was given a tetanus booster. I discussed the fracture and x-rays with orthopedic surgeon on-call Dr. Francisco who recommended attempting reduction but felt like this would likely require some pinning for definitive care. Discussed with patient attempting a digital block and reduction versus reduction without any anesthesia and she opted for just attempted reduction without any anesthesia. With gentle traction I was able to obtain some anatomic reduction and small finger was bari taped to the ring finger. She will have a aluminum splint placed. Patient will be referred to Dr. Francisco for follow-up. Will write a prescription for Howard for pain. Radiography Diagnostic Testing: Clinical Impression(s) from Imaging Studies Hand X-Ray 03/06/24 13:45 IMPRESSION: Osteopenia with osteoarthritic changes and fracture of the proximal aspect of the proximal phalanx of the fifth digit with fixed flexion deformities of the PIP and DIP joints of the fifth digit. Electronically Signed: Amari Barillas MD at 14:09 EDT , Brain CT 03/06/24 14:35 IMPRESSION: No acute intracranial process. Chronic involutional changes of the brain. Electronically Signed: Dominic Stevenson MD at 15:11 EDT , Three-view x-rays of the left hand obtained interpreted by myself as fracture of the proximal phalanx base at the small finger with rotational deformity. Radiology in agreement. Discharge Plan Triage Chief Complaint: Fall ED Provider: China Zaldivar Dx/Rx/DC Orders Clinical Impression: Fall, Finger fracture, left, Closed head injury, Abrasion Instructions: ED Abrasion, ED Fracture, Finger, Closed, ED Head Injury (Adult) Prescriptions: New hydrocodone-acetaminophen 5-325 mg tablet 1 tab PO Q4H PRN PRN (Reason: Pain) 2 Days Qty: 10 0RF No Action losartan 50 mg tablet 50 mg PO DAILY cholecalciferol (vitamin D3) 25 mcg (1,000 unit) capsule 25 mcg PO DAILY venlafaxine 150 MG capsule 150 mg PO DAILY amitriptyline 25 mg tablet 25 mg PO QHS PRN Primary Care Provider: Kathy Meza Referrals: Kathy Meza MD [Primary Care Provider] - Print Language: Upper Sorbian Disposition Disposition: Home, Self Care Discharge Date/Time: 03/06/24 15:37
[2024-03-06] MEDS: Diphth,Pertuss(Acell),Tet Vac 0.5 ML Vial IM (15:00)
== END 2024-03-06 15:37 | disposition home or self-care (01) ==
PROVIDERS: Emergency Provider Emergency Medicine; PCP Family Medicine; Visit Provider Emergency Medicine
DX: S62.607A Fracture of unspecified phalanx of left little finger, initial encounter for closed fracture (principal); S09.90XA Unspecified injury of head, initial encounter; G47.33 Obstructive sleep apnea (adult) (pediatric); W19.XXXA Unspecified fall, initial encounter
CPT/HCPCS: 70450; 73130; 90715; 99283

== ENCOUNTER 2024-09-12 15:15 | Emergency (ER) | payer MEDICARE, OTHER, SELFPAY ==
[2024-09-12 15:20] VITALS: BP 129/70; PULSE 79; RESP 16; TEMP 36.9; O2SAT 100; BMI 28.3
--- NOTE | 2024-09-12 15:53 | EDS_ITS ---
HPI History of Present Illness Chief Complaint: Weakness Informant: patient and family (Daughter) Onset/Context/Timing Onset: Hours (1) Context: Sudden Onset Timing: Continuous Quality: Weak, lightheaded, spinning sensation Location: Generalized Worsened by: Nothing Relieved by: Nothing Narrative Narrative: Patient presents with an episode of weakness, dizziness, nausea, and vomiting that began today. Patient states she was at [employer] looking to get a new computer when she started feeling dizzy and weak. Patient sat down. Daughter states patient leaned forward. Daughter states that patient became very weak but did not actually lose consciousness. Patient describes her dizziness as feeling lightheaded and spinning. Patient describes her weakness as generalized. Patient states nothing makes her symptoms worse and nothing makes them better. Patient had an episode of nausea and vomiting. Patient denies any hematemesis or coffee-ground emesis. Patient denies any fevers or chills. Patient does admit to a headache. [facility] Medical History Lung nodule Subclinical hypothyroidism Obesity Premature atrial contractions Premature ventricular contractions Fibromyalgia DDD (degenerative disc disease) Depression IBS (irritable bowel syndrome) KEARA (obstructive sleep apnea) History of breast cancer History of depression Benign essential hypertension Home Medications ?Medication ?Instructions ?Recorded ?Last Taken ?Type venlafaxine 150 mg 150 mg PO DAILY 08/05/15 Unknown History capsule,extended release 24 hr amitriptyline 25 mg tablet 25 mg PO QHS PRN depression 01/24/20 Unknown History losartan 50 mg tablet 50 mg PO DAILY 01/24/20 Unknown History cholecalciferol (vitamin D3) 25 25 mcg PO DAILY 08/22/20 Unknown History mcg (1,000 unit) capsule hydrocodone-acetaminophen 5-325mg 1 tab PO Q4H PRN PRN Pain 2 days 03/06/24 Unknown Rx 5mg-325mg #10 TABLETS cephalexin 500 mg capsule 500 mg PO Q6 #20 CAPSULES 09/12/24 Unknown Rx omeprazole 40 mg capsule,delayed 40 mg PO DAILY 09/12/24 Unknown History release Allergy/AdvReac Type Severity Reaction Status Date / Time lisinopril AdvReac Mild Other-cough Verified 03/06/24 13:34 Family History Mother CVA (cerebral vascular accident) Alzheimer disease Sister CAD (coronary artery disease) Father Kidney failure Surgical History History of lumpectomy of both breasts History of left heart catheterization (08/06/15) Cataract extraction status of right eye History of hysterectomy Social History Smoking Status: Never smoker second hand exposure: No alcohol intake: never substance use type: does not use ROS ROS ED Constitutional Constitutional ED: Denies chills or fever(s) Eyes Eyes: Denies blurry vision or change in vision ENT ENT ED: Denies rhinorrhea or sore throat Cardiovascular Cardiovascular: Denies chest pain or palpitations Respiratory/Chest Respiratory/Chest: Denies cough or dyspnea Gastrointestinal Gastrointestinal: Reports nausea and vomiting Genitourinary Genitourinary ED: Denies dysuria or hematuria Musculoskeletal Musculoskeletal: Denies back pain or neck pain Integumentary Denies abscess or rash Neurologic Neurologic: Reports headache(s); Denies weakness Allergic/Immunologic Allergic/Immunologic ED: Denies mouth swelling or urticaria EXAM Physical Exam Const Vital Signs: 09/12/24 15:20 09/12/24 15:58 09/12/24 17:13 Temperature 98.4 F Temperature Source Temporal Pulse Rate 79 71 Pulse Rate [Lying] 69 Pulse Rate [Sitting (for 1 minute prior to obtaining)] 76 Pulse Rate [Standing (for 1 minute prior to obtaining)] 74 Respiratory Rate 16 18 Blood Pressure 129/70 H 156/70 H Blood Pressure [Lying] 152/60 H Blood Pressure [Sitting (for 1 minute prior to obtaining)] 142/77 H Blood Pressure [Standing (for 1 minute prior to obtaining)] 138/76 H Blood Pressure Mean 89 98 Blood Pressure Mean [Lying] 90 Blood Pressure Mean [Sitting (for 1 minute prior to obtaining)] 98 Blood Pressure Mean [Standing (for 1 minute prior to obtaining)] 96 Pulse Ox 100 95 Oxygen Delivery Method Room Air Room Air 09/12/24 18:53 Temperature Temperature Source Pulse Rate 69 Pulse Rate [Lying] Pulse Rate [Sitting (for 1 minute prior to obtaining)] Pulse Rate [Standing (for 1 minute prior to obtaining)] Respiratory Rate 19 H Blood Pressure 156/67 H Blood Pressure [Lying] Blood Pressure [Sitting (for 1 minute prior to obtaining)] Blood Pressure [Standing (for 1 minute prior to obtaining)] Blood Pressure Mean 96 Blood Pressure Mean [Lying] Blood Pressure Mean [Sitting (for 1 minute prior to obtaining)] Blood Pressure Mean [Standing (for 1 minute prior to obtaining)] Pulse Ox 99 Oxygen Delivery Method Room Air Positive well nourished and well developed General Appearance ED: well developed and NAD HEENT Reports moist mucous membranes Eyes PERRL and EOMs intact bilaterally Neck supple and no JVD Resp normal respiratory effort and clear to auscultation bilaterally Cardio regular rate and regular rhythm GI non-tender and non-distended Palpation: soft Extremity normal to inspection General Extremety ED: Negative for edema or tenderness General Extremity: Negative for edema Neuro oriented x3, CN's II-XII intact bilaterally and no sensory deficits noted Sensorium / Orientation: alert Motor Exam: strength 5/5 throughout Psych mental status grossly normal MDM MDM MDM Narrative Medical decision making narrative: Differential diagnosis includes stroke, viral illness, cardiac dysrhythmia, cardiac ischemia, electrolyte abnormality, dehydration, pneumonia, and urinary tract infection. CBC will be obtained to assess for leukocytosis and anemia. Comprehensive metabolic profile will be obtained to assess for hepatic function, renal function, and electrolyte abnormality. High-sensitivity troponin will be obtained to assess for cardiac ischemia. EKG will be obtained to assess for cardiac dysrhythmia and cardiac ischemia. Chest x-ray will be obtained to assess for pneumonia and pneumothorax. CT scan of the brain will be obtained to assess for stroke and intracranial bleeding. Urinalysis will be obtained to assess for urinary tract infection and hematuria. Lab Data Attestation: I reviewed the patient's lab results. Lab results narrative: CBC was without. There is a mild anemia with a hemoglobin of 9.8 and hematocrit 31.7. The remainder is within normal limits. Comprehensive metabolic profile was reviewed. BUN was 25 and creatinine was 1.62. These are slightly increased from previous results. Urinalysis was reviewed. Leukocyte esterase was 500 with 10-25 white blood cells. Initial high-sensitivity troponin was reviewed and was normal at 39. 2-hour repeat high-sensitivity troponin was reviewed and was 38. Labs: Laboratory Results - last 24 hr 09/12/24 09/12/24 09/12/24 16:04 16:30 17:16 WBC 6.4 RBC 3.98 L Hgb 9.8 L Hct 31.7 L MCV 79.6 L MCH 24.6 L MCHC 30.9 L RDW Std Deviation 40.9 RDW Coeff of Christa 14.2 Plt Count 305 MPV 8.4 Immature Gran % (Auto) 0.300 Neut % (Auto) 75.9 H Lymph % (Auto) 17.2 L [place] % (Auto) 5.1 Eos % (Auto) 0.6 Baso % (Auto) 0.9 Absolute Neuts (auto) 4.9 Absolute Lymphs (auto) 1.11 Nucleated RBC % 0 Sodium Cancelled 139 Potassium Cancelled 4.7 Chloride Cancelled 109 H Carbon Dioxide Cancelled 26.0 Anion Gap Cancelled 4 L BUN Cancelled 25 H Creatinine Cancelled 1.62 H Estim Creat Clear Calc Cancelled 27.50 Est GFR (MDRD) Af Amer Cancelled 39 L Est GFR (MDRD) Non-Af Cancelled 32 L BUN/Creatinine Ratio Cancelled 15.4 Glucose Cancelled 89 Calcium Cancelled 9.3 Total Bilirubin Cancelled 0.40 AST Cancelled 18 ALT Cancelled 16 Alkaline Phosphatase Cancelled 66 Troponin I High Sens Cancelled 39 Total Protein Cancelled 7.6 Albumin Cancelled 3.6 Globulin Cancelled 4.0 Albumin/Globulin Ratio Cancelled 0.9 Urine Color Straw Urine Clarity Cloudy Urine pH 6.0 Ur Specific [place] 1.020 Urine Protein 100 H Urine Glucose (UA) Normal Urine Ketones 5 H Urine Occult Blood 10 H Urine Nitrite Negative Urine Bilirubin 1 H Urine Urobilinogen 1 H Ur Leukocyte Esterase 500 H Urine RBC 0-5 SEEN Urine WBC 10-25 SEEN Ur Squamous Epith Cells 0-5 SEEN Amorphous Sediment 1+ URATE Urine Bacteria 0 SEEN Hyaline Casts 0-5 SEEN Urine Mucus 0 SEEN 09/12/24 19:25 WBC RBC Hgb Hct MCV MCH MCHC RDW Std Deviation RDW Coeff of Christa Plt Count MPV Immature Gran % (Auto) Neut % (Auto) Lymph % (Auto) [place] % (Auto) Eos % (Auto) Baso % (Auto) Absolute Neuts (auto) Absolute Lymphs (auto) Nucleated RBC % Sodium Potassium Chloride Carbon Dioxide Anion Gap BUN Creatinine Estim Creat Clear Calc Est GFR (MDRD) Af Amer Est GFR (MDRD) Non-Af BUN/Creatinine Ratio Glucose Calcium Total Bilirubin AST ALT Alkaline Phosphatase Troponin I High Sens 38 Total Protein Albumin Globulin Albumin/Globulin Ratio Urine Color Urine Clarity Urine pH Ur Specific [place] Urine Protein Urine Glucose (UA) Urine Ketones Urine Occult Blood Urine Nitrite Urine Bilirubin Urine Urobilinogen Ur Leukocyte Esterase Urine RBC Urine WBC Ur Squamous Epith Cells Amorphous Sediment Urine Bacteria Hyaline Casts Urine Mucus Radiography Diagnostic Testing: Clinical Impression(s) from Imaging Studies Brain CT 09/12/24 15:58 IMPRESSION: No acute intracranial abnormality. Chronic involutional and ischemic changes of the brain. Electronically Signed: Aric Marrero MD at 16:52 EST , CT scan of the brain was obtained. There is no acute intracranial abnormality.. There are chronic involutional and ischemic changes. This was interpreted by the radiologist and was also independently reviewed by myself. EKG Initial EKG: Attestation: I personally reviewed and interpreted this EKG as follows: Interpretation: Sinus Rhythm (With frequent PACs in a bigeminy pattern with a rate of 68.) and Non-Specific ST Changes Comments: EKG was obtained. On my independent interpretation, it shows a sinus rhythm with frequent PACs in a bigeminy pattern. IL interval is slightly prolonged at 208 ms. QRS interval was normal at 110 ms. QTc interval was normal at 433 ms. There is left axis deviation -37. There are nonspecific ST-T wave changes noted. This was unchanged compared to previous EKG dated 01/21/2024. Prior EKG tracings: available for review Prior: Unchanged (01/21/2024) Treatment and Re-Evaluation :: Patient was given IV fluids. Patient was given a dose of Valium. Patient was given a dose of Rocephin. Patient was ambulated here in the emergency department. Patient was able to ambulate without difficulty. Patient was given a prescription for Keflex. Patient was instructed to drink plenty of fluids. Patient was instructed to follow-up with her primary care physician in 5 to 7 days. Patient was instructed to return if worse in any way. Patient and family understood and were agreeable with plan. All questions were answered. Discharge Plan Triage Chief Complaint: Weakness ED Provider: Cesar Chaves Dx/Rx/DC Orders Clinical Impression: Urinary tract infection, General weakness Instructions: ED Cystitis Female Adult Prescriptions: New cephalexin 500 mg capsule 500 mg PO Q6 Qty: 20 0RF No Action losartan 50 mg tablet 50 mg PO DAILY cholecalciferol (vitamin D3) 25 mcg (1,000 unit) capsule 25 mcg PO DAILY venlafaxine 150 MG capsule 150 mg PO DAILY amitriptyline 25 mg tablet 25 mg PO QHS PRN (Reason: depression) hydrocodone-acetaminophen 5-325 mg tablet 1 tab PO Q4H PRN PRN (Reason: Pain) 2 Days Qty: 10 0RF omeprazole 40 mg capsule,delayed release(DR/EC) 40 mg PO DAILY Primary Care Provider: Kathy Meza Referrals: Kathy Meza MD [Primary Care Provider] - 5-7 Days Print Language: Lithuanian Disposition Disposition: Home, Self Care
[2024-09-12 15:58] VITALS: BP 138/76; BP 142/77; BP 152/60; PULSE 69; PULSE 74; PULSE 76
--- NOTE | 2024-09-12 15:58 | EKG12_ITS ---
Test Reason : DIZZINESS/WEAKNESS Blood Pressure : */* mmHG Vent. Rate : 68 BPM Atrial Rate : 68 BPM P-R Int : 208 ms QRS Dur : 110 ms QT Int : 408 ms P-R-T Axes : 44 -37 80 degrees QTcB Int : 433 ms Sinus rhythm with Premature atrial complexes in a pattern of bigeminy Left axis deviation Incomplete left bundle branch block Moderate voltage criteria for LVH, may be normal variant ( R in aVL , [place] product ) Abnormal ECG Confirmed by Atilio Montana ([id number]), editor managing director RENETTA LOPEZ ([id number]) on 09/13/2024 9:26:25 AM Referred By: Confirmed By: Atilio Montana
--- NOTE | 2024-09-12 15:58 | CT_ITS ---
EXAMINATION : Head CT w/out contrast HISTORY : Dizziness COMPARISON : 03/06/2024. TECHNIQUE : Multiple contiguous axial images were obtained from the skull base to the vertex without intravenous contrast. A radiation dose optimization technique was used for this scan. FINDINGS : There is no evidence for acute intracranial hemorrhage, mass effect, or midline shift. There is no extra-axial fluid collection. There are periventricular white matter changes consistent with chronic microvascular ischemic disease. There is sulcal widening and ventricular enlargement consistent with cerebral atrophy. There is normal cobb-white differentiation, without CT evidence of acute ischemia or infarct. The skull base and calvarium are unremarkable. The orbits are unremarkable. The paranasal sinuses are clear. The mastoid air cells are well-aerated. The soft tissues are unremarkable. CT/Brain/Head without Contrast IMPRESSION: No acute intracranial abnormality. Chronic involutional and ischemic changes of the brain. Electronically Signed: Aric Marrero MD at 16:52 EST ,
[2024-09-12] MEDS: 0.9% Normal Saline (1000mL) 1,000 ML 1000 ML IV (16:09)
[2024-09-12] MEDS: diazePAM 5 MG Tablet 2.5 MG PO (16:10)
[2024-09-12 16:13] LABS: Absolute Lymphocyte Count 1.11 X10^3/uL (0.83-4.51); Absolute Neutrophil Count 4.9 X10^3/uL (2.0-7.7); Basophil# 0.06 X10^3/uL; Basophil% 0.9 % (0-1); Eosinophil# 0.04 X10^3/uL; Eosinophils% 0.6 % (0-5); Hematocrit 31.7 % (37-47); Hemoglobin 9.8 g/dL (12.0-15.0); Lymphocyte # 1.11 X10^3/ul (0.83-4.51); Lymphocyte % 17.2 % (19-41); Mean Corp Hgb Conc 30.9 g/dL (32-36); Mean Corpuscular Hgb 24.6 pg (27.0-32.0); Mean Corpuscular Volume 79.6 fL (81-99); Mean Platelet Vol. 8.4 fl (6.2-12.0); Monocyte# 0.33 X10^3/uL; Monocyte% 5.1 % (0-10); NRBC Flagged by Analyzer 0 % (0-5); Neutrophil # 4.88 X10^3/uL (2.7-7.7); Neutrophil % 75.9 % (47-70); Platelet Count 305 K/mm3 (150-450); RBC Distribution Width CV 14.2 % (11.6-14.6); RBC Distribution Width SD 40.9 fl (35.1-43.9); Red Blood Count 3.98 M/mm3 (4.2-5.4); White Blood Count 6.4 K/mm3 (4.4-11.0)
[2024-09-12 16:37] LABS: Bacteria 0 SEEN /hpf (None Seen)
[2024-09-12 16:38] LABS: Mucous, Urine 0 SEEN /hpf (<or=2+)
[2024-09-12 16:52] LABS: Color, Urine Straw (Yellow); Glucose, Dipstick Normal (Normal); Ketone-Dipstick 5 mg/dl (Negative); Leukocyte Esterase-Dipstick 500 /ul (Negative); Nitrite-Dipstick Negative (Negative); Occult Blood-Urine 10 /ul (Negative); Protein-Dipstick 100 mg/dl (Negative); Urine Clarity Cloudy (Clear); Urine Urobilinogen 1 mg/dl (Normal)
[2024-09-12 17:13] VITALS: BP 156/70; PULSE 71; RESP 18; O2SAT 95
[2024-09-12 17:24] LABS: Urine Bilirubin Dipstick 1 mg/dL (Negative)
[2024-09-12 17:35] LABS: Red Blood Cells-Urine 0-5 SEEN /hpf (0-5); Squamous Epithelial Cells - UA 0-5 SEEN /hpf (5-10); White Blood Cells 10-25 SEEN /hpf (0-5)
[2024-09-12 17:36] LABS: Amorphous Sediment 1+ URATE; Hyaline Cast 0-5 SEEN /lpf (0-5)
[2024-09-12 17:46] LABS: ALB/GLOB Ratio 0.9 RATIO (0.9-2.4); AST(SGOT) 18 U/L (15-37); Alanine Aminotransfer ALT/SGPT 16 U/L (13-56); Albumin, Serum 3.6 g/dL (3.2-5.0); Alkaline Phosphatase 66 U/L (45-117); Anion Gap 4 (5-15); BUN 25 mg/dL (7-18); BUN/Creat Ratio 15.4 RATIO (10-20); Calcium,Total 9.3 mg/dL (8.5-10.1); Chloride 109 mmol/L (98-107); Creatinine, Serum 1.62 mg/dL (0.55-1.02); EST Glomerular Filtration Rate 32 mL/min (>60); Est Glom Filt Rate - Afr Amer 39 mL/min (>60); Glucose 89 mg/dL (74-106); Potassium 4.7 mmol/L (3.5-5.1); Protein, Total 7.6 g/dL (6.4-8.2); Sodium Level 139 mmol/L (136-145); Troponin-I HS (w/2H Reflex) 39 pg/mL (3.0-54.0)
[2024-09-12] MEDS: Ceftriaxone 1 GM/50 ML BAG IV (18:20)
[2024-09-12 18:53] VITALS: BP 156/67; PULSE 69; RESP 19; O2SAT 99
[2024-09-12 19:21] LABS: Reflex Troponin-HS? (from REC) Y
[2024-09-12 19:54] LABS: Troponin-I HS 38 pg/mL (3.0-54.0)
[2024-09-12 20:40] VITALS: BP 181/66; PULSE 67; RESP 18; TEMP 36.9; O2SAT 99
== END 2024-09-12 20:45 | disposition home or self-care (01) ==
PROVIDERS: Emergency Provider Emergency Medicine; PCP Family Medicine; Visit Provider Emergency Medicine
DX: N39.0 Urinary tract infection, site not specified (principal); I10 Essential (primary) hypertension; Z79.899 Other long term (current) drug therapy
CPT/HCPCS: 70450; 80053; 81001; 84484; 85025; 87086; 87088; 87631; 93005; 96361; 96365; 99285; A4216

== ENCOUNTER → 2024-09-22 | Outpatient (CLI) | payer MEDICARE, OTHER, SELFPAY ==
--- NOTE | 2024-09-22 12:51 | RAD_ITS ---
INDICATION: PAIN EXAMINATION/TECHNIQUE: X-RAY - RIGHT XR Knee Complete 4 Views or More COMPARISON: None. FINDINGS: No acute fracture or malalignment. Moderate, medial compartment predominant joint space narrowing and osteophytosis. Small suprapatellar joint effusion. The soft tissues are unremarkable. RAD/Knee 4 or More Views IMPRESSION: No acute abnormalities. Small joint effusion. Moderate, medial compartment predominant degenerative arthrosis of the knee. Electronically Signed: Aric Marrero MD at 10:32 EST ,
== END | disposition home or self-care (01) ==
LOC: MTRAD 12:50
PROVIDERS: PCP Family Medicine; Referring Provider Family Medicine; Visit Provider Family Medicine
DX: M25.561 Pain in right knee (principal)
CPT/HCPCS: 73564

== ENCOUNTER → 2024-10-31 | Outpatient (CLI) | payer MEDICARE, OTHER, SELFPAY ==
--- NOTE | 2024-10-31 13:06 | RAD_ITS ---
PROCEDURE: Lumbar spine radiographs, four views REASON FOR EXAM: Pain. Possible spinal stenosis TECHNIQUE: Four views of the lumbar spine were obtained. COMPARISON: None. FINDINGS: Four views of the lumbar spine were obtained. Bones are osteopenic. There is mild rightward pelvic tilt. The included portions of the pelvis and SI joints are intact. Straightening of the normal lumbar lordosis. No acute fracture or focal subluxation of the lumbar spine. Moderate multilevel degenerative disc and facet disease in the lumbar spine. RAD/L/S Spine Min 4 Views IMPRESSION: Osteopenia. No acute bony abnormality of the lumbar spine. Straightening of the normal lumbar lordosis may be due to muscle spasm or posit ioning. Moderate multilevel degenerative disc and facet disease in the lumbar spine. I f there is persistent pain or clinical concern, short-term follow-up MRI evaluation may be helpful. Reading Location: [place]
[2024-10-31 15:24] LABS: Absolute Neutrophil Count 4.4 X10^3/uL (2.0-7.7); Basophil# 0.04 X10^3/uL; Basophil% 0.6 % (0-1); Eosinophil# 0.14 X10^3/uL; Eosinophils% 2.1 % (0-5); Hematocrit 33.8 % (37-47); Hemoglobin 10.3 g/dL (12.0-15.0); Lymphocyte % 22.9 % (19-41); Mean Corp Hgb Conc 30.5 g/dL (32-36); Mean Corpuscular Hgb 25.2 pg (27.0-32.0); Mean Corpuscular Volume 82.8 fL (81-99); Mean Platelet Vol. 8.7 fl (6.2-12.0); Monocyte% 6.1 % (0-10); NRBC Flagged by Analyzer 0 % (0-5); Neutrophil # 4.44 X10^3/uL (2.7-7.7); Platelet Count 384 K/mm3 (150-450); RBC Distribution Width CV 16.6 % (11.6-14.6); RBC Distribution Width SD 49.2 fl (35.1-43.9); Red Blood Count 4.08 M/mm3 (4.2-5.4); White Blood Count 6.5 K/mm3 (4.4-11.0)
[2024-11-01 05:09] LABS: ALB/GLOB Ratio 1.3 RATIO (0.9-2.4); AST(SGOT) 24 U/L (<=31); Alanine Aminotransfer ALT/SGPT 13 U/L (<=34); Albumin, Serum 4.4 g/dL (3.4-4.8); Alkaline Phosphatase 63 U/L (35-104); Anion Gap 15 (5-15); BUN 31 mg/dL (4-19); Calcium 10.3 mg/dL (7.6-11.0); Carbon Dioxide 23.1 mmol/L (22.0-29.0); Chloride 101 mmol/L (96-108); Creatinine, Serum 1.5 mg/dL (0.6-1.0); EST Glomerular Filtration Rate 33 (>60); Ferritin 17 ng/mL (22-378); Globulin 3.4 g/dL (2.2-4.2); Glucose 85 mg/dL (70-99); Potassium 4.4 mmol/L (3.3-5.1); Protein, Total 7.7 g/dL (5.9-8.4); Sodium Level 139 mmol/L (133-145); Total Bilirubin 0.33 mg/dL (0.00-1.30)
== END | disposition home or self-care (01) ==
LOC: MTLAB 13:05
PROVIDERS: PCP Family Medicine; Referring Provider Family Medicine; Visit Provider Family Medicine
DX: D50.9 Iron deficiency anemia, unspecified (principal); N18.31 Chronic kidney disease, stage 3a; K21.9 Gastro-esophageal reflux disease without esophagitis; M54.50 Low back pain, unspecified
CPT/HCPCS: 36415; 72110; 80053; 82728; 85025

== ENCOUNTER → 2024-12-04 | Outpatient (CLI) | payer MEDICARE, OTHER, SELFPAY ==
--- NOTE | 2024-12-04 14:08 | MRI_ITS ---
PROCEDURE: SPINE LUMBAR (ROUTINE) (MRISPL), 12/04/2024 REASON FOR EXAM: SPINAL STENOSIS LUMBAR REGION TECHNIQUE: Multisequence multiplanar MR of the lumbar spine was performed without IV contrast. COMPARISON: 10/31/2024 FINDINGS: Vertebral body heights are preserved. Few small T1 bright likely vertebral body hemangiomas.. Mild lumbar dextroscoliosis with apex at L4. Similar straightening of the normal lumbar lordosis. Conus medullaris terminates normally at the L1-L2 disc level. Unremarkable appearance of the cauda equina, allowing for crowding related to stenoses as below. L1-2: Incompletely imaged vertebral body on axial sequences. Mild diffuse disc bulging. No significant spinal canal or foraminal stenosis. L2-3: Disc height loss with diffuse disc bulging. Superimposed bilateral foraminal disc protrusions. Facet arthropathy and ligamentum flavum hypertrophy. Narrowing of the bilateral lateral recesses. Moderate focal spinal canal stenosis with incomplete effacement of CSF. No significant foraminal stenosis. L3-4: Disc height loss with diffuse disc bulging and superimposed MYHYO-bsmiiim-eknc-LEFT foraminal and extraforaminal disc protrusions, contacting the exiting nerve roots on the RIGHT. Effacement of the ENFHQ-ngtngwd-urui-LEFT lateral recesses. Zbmxtizz-al-pnqgwd focal spinal canal stenosis with complete effacement of CSF. Facet arthropathy and ligamentum flavum hypertrophy. Mild/moderate bilateral foraminal stenoses. L4-5: Diffuse disc bulging, asymmetric to the LEFT. Superimposed LEFT subarticular, foraminal, and lateral disc protrusion contacting the exiting nerve root. Narrowing of the PIXC-onymtll-magv-RIGHT lateral recesses. Facet arthropathy. Ligamentum flavum hypertrophy. Moderate LEFT foraminal stenosis. Moderate focal spinal canal stenosis with incomplete effacement of CSF. L5-S1: Diffuse disc bulging. Facet arthropathy. Ligamentum flavum hypertrophy. Moderate focal spinal canal stenosis with incomplete effacement of CSF. Mild bilateral foraminal stenoses. Other: 16 mm subcapsular lateral RIGHT lobe hepatic lesion inferiorly on a single coronal biofuels technology manager image. Presumed LEFT renal cysts. MRI/Spine Lumbar (Routine) IMPRESSION: 1. Multilevel spondylosis as above, with variable spinal canal stenoses up to m hmquiee-hb-ikketr at L3-L4. Variable foraminal stenoses up to moderate on the LEFT at L4-L5. Additional multilevel narrowing/ effacement of the lateral recesses as detailed. 2. Suspect a 16 mm indeterminate hepatic lesion, incompletely evaluated. Rafy re with any available outside imaging. If unavailable, recommend targeted ultrasound and consideration of multiphase hepa tic protocol CT/MRI if this is not clearly cystic or is not seen. 3. Additional description as above. Reading Location: [id number]
== END | disposition home or self-care (01) ==
LOC: MRI 14:04
PROVIDERS: PCP Family Medicine; Referring Provider Family Medicine; Visit Provider Family Medicine
DX: M48.061 Spinal stenosis, lumbar region without neurogenic claudication (principal)
CPT/HCPCS: 72148

== ENCOUNTER 2024-12-13 09:34 | Emergency (ER) | payer MEDICARE, OTHER, SELFPAY ==
[2024-12-13 09:34] VITALS: BP 163/94; PULSE 85; RESP 14; TEMP 36.7; O2SAT 98
--- NOTE | 2024-12-13 09:39 | EKG12_ITS ---
Test Reason : CP Blood Pressure : */* mmHG Vent. Rate : 87 BPM Atrial Rate : 141 BPM P-R Int : 184 ms QRS Dur : 108 ms QT Int : 348 ms P-R-T Axes : * -41 104 degrees QTcB Int : 418 ms Sinus tachycardia with Blocked Premature atrial complexes Left axis deviation Left ventricular hypertrophy with repolarization abnormality ( R in aVL , [place] product ) Cannot rule out Septal infarct , age undetermined Abnormal ECG Confirmed by MARIANNE ALVARADO, YOGESH ([id number]), department editor TACO DEVRIES ([id number]) on 12/14/2024 8:37:10 AM Referred By: Confirmed By: YOGESH LOPES MD
--- NOTE | 2024-12-13 09:49 | EDS_ITS ---
HPI History of Present Illness Chief Complaint: Chest Pain Informant: patient and family Onset/Context/Timing Onset: Today and Hours Activity at onset: gradual Timing: Intermittent Quality: Positive for Pain and Sharp Location: Left Parasternal Current Severity: Gone Maximum Severity: Mild Worsened By: Nothing Relieved By: Nothing Associated Symptoms: Positive for Dyspnea; Negative for Nausea, Vomiting, Diaphoresis, Cough, Fever, Lightheadedness, Acid Reflux or Palpitations Narrative Narrative: 84-year-old female history of hypertension states she was lying in bed today around 430 this morning she said she was asleep but she is having trouble sleeping felt some sharp discomfort on left side of her chest. Lasted about 20 minutes. Completely resolved now. No recent exertional chest pain. No nausea. No diaphoresis. May have had mild shortness of breath but currently no shortness of breath. No history of DVT or PE or risk factors. No prior history of cardiac disease. Prior negative heart cath 15+ years ago. Currently is symptom-free. Prior Similar Symptoms: Yes Recent Illness/Hospitalization: No CVD Risk Factors: Positive for Hypertension; Negative for Diabetes or Hypercholesterolemia PE Risk Factors: Negative for Recent Travel/Surgery, Recent Immobilization, Prior DVT or PE, Cancer or OCP + Smoking + >/=35 TAD Risk Factors: Negative for Marfan's Syndrome [facility] Medical History Lung nodule Subclinical hypothyroidism Obesity Premature atrial contractions Premature ventricular contractions Fibromyalgia DDD (degenerative disc disease) Depression IBS (irritable bowel syndrome) KEARA (obstructive sleep apnea) History of breast cancer History of depression Benign essential hypertension Home Medications ?Medication ?Instructions ?Recorded ?Last Taken ?Type venlafaxine 150 mg 150 mg PO DAILY 08/05/1504/30 History capsule,extended release 24 hr amitriptyline 25 mg tablet 25 mg PO QHS PRN sleep 01/05 Unknown History losartan 50 mg tablet 50 mg PO DAILY 01/24/2004/30 History cholecalciferol (vitamin D3) 25 25 mcg PO DAILY Unknown History mcg (1,000 unit) capsule omeprazole 40 mg capsule,delayed 40 mg PO DAILY 12/12/24 History release ferrous sulfate 325 mg (65 mg 325 mg PO DAILY 12/13/24 12/12/24 History iron) tablet (Feosol) magnesium 250 mg tablet 250 mg PO DAILY 12/13/2404/30 History Allergy/AdvReac Type Severity Reaction Status Date / Time lisinopril AdvReac Mild Other-cough Verified 12/13/24 09:35 Family History Mother CVA (cerebral vascular accident) Alzheimer disease Sister CAD (coronary artery disease) Father Kidney failure Surgical History History of lumpectomy of both breasts History of left heart catheterization (08/06/15) Cataract extraction status of right eye History of hysterectomy Social History Smoking Status: Never smoker second hand exposure: No alcohol intake: never substance use type: does not use ROS ROS ED ROS Narrative No recent illness. Atypical nonexertional chest discomfort today that lasted 20 minutes. Constitutional Constitutional ED: Denies chills or fever(s) Eyes Eyes: Reports none ENT ENT ED: Denies ear pain Cardiovascular Cardiovascular: Reports as per HPI and chest pain; Denies palpitations or racing heartbeat Respiratory/Chest Respiratory/Chest: Denies cough, dyspnea or dyspnea on exertion Gastrointestinal Gastrointestinal: Denies abdominal pain Genitourinary Genitourinary ED: Denies dysuria or hematuria Musculoskeletal Musculoskeletal: Denies arthralgias Integumentary Denies abscess Neurologic Neurologic: Denies headache(s) Psychiatric Psychiatric: Denies anxiety Endocrine Endocrinology: Denies cold intolerance Hematologic/Lymphatic Hematologic/Lymphatic: Denies easy bleeding or easy bruising Allergic/Immunologic Allergic/Immunologic ED: Denies mouth swelling, tongue swelling or urticaria EXAM Physical Exam Narrative Exam Narrative: Well-appearing 84-year-old female. Sitting upright in bed. Vital signs are stable and afebrile. Pulse ox 98% on room air no hypoxia. H EENT exam pupils round reactive light. Extra motions are intact. Moist mucous membranes. Neck nontender no JVD. Lungs clear to auscultation bilaterally. Heart regular rhythm rate about 85 no murmur. Mild left-sided reproducible chest wall pain. The chest wall appears normal. There is no ecchymosis or bruising no subcu air or crepitance. Patient does have PACs on the monitor. Abdomen soft and nontender. Moving all 4 extremities. Equal symmetrical radial pulses. Normal research and development manager strength. Calves are nontender without edema or cords. Normal dorsi plantarflexion. Back nontender. Neurologically she is awake alert no focal motor deficits. Const Vital Signs: 12/13/24 09:34 12/13/24 09:39 12/13/24 10:47 Temperature 98.1 F Temperature Source Temporal Pulse Rate 85 71 Respiratory Rate 14 22 H Blood Pressure 163/94 H 135/89 H Blood Pressure Mean 117 104 Pulse Ox 98 94 Oxygen Delivery Method Room Air Room Air 12/13/24 11:00 12/13/24 12:14 12/13/24 13:00 Temperature Temperature Source Pulse Rate 70 70 70 Respiratory Rate 20 H 20 H 18 Blood Pressure 130/80 H 158/73 H 176/70 H Blood Pressure Mean 96 101 105 Pulse Ox 95 96 96 Oxygen Delivery Method Positive well nourished and well developed; Negative for cachectic, contractures or unkempt General Appearance ED: well developed and NAD; Negative for unkempt, cachectic, contractures or pallor Nutritional Appearance: Negative for cachectic HEENT Reports moist mucous membranes normocephalic and atraumatic; Negative for trauma or tenderness Eyes PERRL and EOMs intact bilaterally General Eye ED: Negative for pale conjunctiva, scleral icterus or other Neck no lymphadenopathy, supple and no JVD General: Negative for tenderness Chest Wall inspection of chest normal; Negative for palpation of chest normal Chest Narrative: Mild reproducible chest wall pain on the left. Chest wall as a normal appearance. No discoloration. No bruising. No subcu air or crepitance. Chest: tenderness Resp normal respiratory effort and clear to auscultation bilaterally Effort and Inspection: Negative for respiratory distress Cardio regular rate, regular rhythm, S1 normal heart sound, S2 normal heart sound and no murmurs Peripheral Pulses: pulses 2+ throughout GI normal to inspection, nondistended, normoactive bowel sounds, soft to palpation, non-tender, non-distended and no masses Back/Spine no CVA tenderness and no thoracic nor lumbar tenderness Extremity normal to inspection General Extremety ED: Negative for edema, pulses abnormal or tenderness General Extremity: Negative for edema or pulses abnormal Neuro oriented x3 and CN's II-XII intact bilaterally Sensorium / Orientation: awake, alert, oriented to person, oriented to place and oriented to time; Negative for confused, lethargic or stuporous Motor Exam: strength 5/5 throughout Psych mental status grossly normal Appearance: Negative for unkempt Skin no rashes or lesions noted and no wounds General Skin Exam: Negative for jaundice or pallor Rashes: No rashes noted Trauma: Negative for abrasion or laceration Heart Score History: Slightly/Non-Suspicious ECG: Normal Age: >/= 65 years Risk Factors: 1 or 2 Risk Factors Troponin: </= Normal Limit Score: 3 MDM MDM MDM Narrative Medical decision making narrative: 84-year-old female benign exam. Atypical nonexertional chest pain while lying in bed. Lasted 20 minutes. There is some reproducible chest wall discomfort may or may not be the same pain. She undergo cardiac workup rule out CT ischemia etc. She has no DVT or PE risk factors or history. Do not think she needs a D-dimer. History & Record Review Discussion w/independent historian: Patient and Family Additional record(s) reviewed:: Prior inpatient record, Prior outpatient record, Prior ED visit and Prior labs Lab Data Attestation: I reviewed the patient's lab results. Lab results narrative: CBC shows white count 8.3. H&H 11.4 and 35.9. Platelets 299. Initial troponin elevated at 15. 2-hour troponin was 15 also. Chest x-ray chronic changes. Labs: Laboratory Results - last 24 hr 12/13/24 12/13/24 10:45 12:40 WBC 8.3 RBC 4.27 Hgb 11.4 L Hct 35.9 L MCV 84.1 MCH 26.7 L MCHC 31.8 L RDW Std Deviation 49.5 H RDW Coeff of Christa 15.9 H Plt Count 299 MPV 8.9 Immature Gran % (Auto) 1.300 H Neut % (Auto) 73.3 H Lymph % (Auto) 15.4 L Reagan % (Auto) 7.1 Eos % (Auto) 2.3 Baso % (Auto) 0.6 Absolute Neuts (auto) 6.1 Absolute Lymphs (auto) 1.28 Nucleated RBC % 0 Sodium 137 Potassium 4.3 Chloride 103 Carbon Dioxide 21.4 Anion Gap 13 BUN 21 H Creatinine 1.09 Estim Creat Clear Calc 41.61 L Est GFR (MDRD) Non-Af 50 L BUN/Creatinine Ratio 19.6 Glucose 87 Calcium 9.6 Troponin T High Sens 15 H Troponin T Hi Sens 2 Hr 15 H Radiography Chest X-Ray - ED: 1 View, Read by ED Physician, Read by Radiologist, Heart, Lungs, Bony Structures, No Acute Disease and Chronic Changes Diagnostic Testing: Clinical Impression(s) from Imaging Studies Chest X-Ray 12/13/24 10:34 IMPRESSION: 1. Very mild LEFT basilar airspace disease may reflect atelectasis/scarring or early/mild pneumonia, in the absence of comparison exams. Follow-up to radiographic resolution recommended. 2. Recommend outpatient CT chest, ideally with IV contrast, for further evaluation of above mediastinal findings, unless outside imaging is available to establish stability or further delineate. 3. Additional description as above. Reading Location: [id number] Chest CT 12/13/24 11:40 IMPRESSION: 1. No masses or other significant abnormalities in the mediastinum. 2. Multiple bilateral noncalcified micro nodules. Consider 3 to 6 month follow-up low-dose CT chest for surveillance. 3. Small 0.7 cm nodule in the right breast, 7 o'clock. Consider mammography for further evaluation if indicated. 4. Other nonacute findings detailed above. Reading Location: [place] [id number] Chest x-ray, 2 views, AP lateral, interpreted by myself and radiologist. Radiologist's concern for potential mediastinal abnormalities possible lymphadenopathy versus other. CT was obtained. Rhythm Strip Rhythm Strip: Sinus Rhythm Rate: 87 Ectopy: PAC(s) EKG Initial EKG: Attestation: I personally reviewed and interpreted this EKG as follows: Interpretation: Sinus Rhythm and No Acute Injury Pattern Comments: Normal sinus rhythm rate 87. PACs. LVH. No acute CT or ischemia. Discharge Plan Triage Chief Complaint: Chest Pain ED Provider: Andres Bansal Dx/Rx/DC Orders Prescriptions: No Action losartan 50 mg tablet 50 mg PO DAILY cholecalciferol (vitamin D3) 25 mcg (1,000 unit) capsule 25 mcg PO DAILY venlafaxine 150 MG capsule 150 mg PO DAILY amitriptyline 25 mg tablet 25 mg PO QHS PRN (Reason: sleep) omeprazole 40 mg capsule,delayed release(DR/EC) 40 mg PO DAILY ferrous sulfate [Feosol] 325 mg (65 mg iron) tablet 325 mg PO DAILY magnesium 250 mg tablet 250 mg PO DAILY Primary Care Provider: Kathy Meza Referrals: Kathy Meza MD [Primary Care Provider] - Print Language: Greek
[2024-12-13 10:18] VITALS: BMI 29.3
--- NOTE | 2024-12-13 10:34 | RAD_ITS ---
PROCEDURE: CHEST 1 VIEW (PORTABLE) 12/13/2024 REASON FOR EXAM: CHEST PAIN TECHNIQUE: Frontal view of the chest. FINDINGS: Heart: Top-normal heart size for technique Mediastinum: Widening of the RIGHT paratracheal stripe could be projectional, related to prominent vasculature or mediastinal lipomatosis, or mediastinal lymphadenopathy amongst other mediastinal processes. Additional slight rightward deviation of the trachea at/just below the thoracic inlet could be a related finding. Lungs/pleura: Very mild streaky retrocardiac LEFT basilar airspace disease. No sizeable pleural effusion or visible pneumothorax. Bones: Suspected demineralization Lines and support devices: None. RAD/Chest 1 View (Portable) IMPRESSION: 1. Very mild LEFT basilar airspace disease may reflect atelectasis/scarring or early/mild pneumonia, in the absence of comparison exams. Follow-up to radiographic resolution recommended. 2. Recommend outpatient CT chest, ideally with IV contrast, for further evaluat ion of above mediastinal findings, unless outside imaging is available to establish stability or further delineate. 3. Additional description as above. Reading Location: [id number]
[2024-12-13 10:47] VITALS: BP 135/89; PULSE 71; RESP 22; O2SAT 94
[2024-12-13 11:00] VITALS: BP 130/80; PULSE 70; RESP 20; O2SAT 95
--- NOTE | 2024-12-13 11:40 | CT_ITS ---
PROCEDURE: CHEST WITH CONTRAST 12/13/2024 REASON FOR EXAM: MEDIASTINAL ABNORMALITY PER RADIOLOGIST TECHNIQUE: Contiguous axial scans of 2.5 mm slice thicknesses. Sagittal and coronal reconstruction images were obtained. One or more dose reduction techniques were used (e.g., automated exposure control, adjustment of mA and/or kv according to patient size, use of iterative reconstruction technique). CONTRAST: Isovue-300 VOLUME: 99 mL RADIATION DOSE SUMMARY: CTDlvol: 20.78 mGy DLP: 388.48 mGycm COMPARISON: Chest dated 12/13/2024 FINDINGS: Hardware: Unremarkable. Lymph nodes: Unremarkable. Heart and Vasculature: Normal heart size and configuration. No concerning coronary artery calcifications. Pericardium: No pericardial thickening. Mediastinum: No mediastinal widening. No pathologic lymphadenopathy. Lungs and Airways: A 0.4 cm noncalcified micronodule in the right apex, axial image 21, sagittal image 93. a 0.6 cm noncalcified subpleural micronodule adjacent to the major fissure, right lower lobe, axial image 51, sagittal image 86. A 0.7 cm noncalcified subpleural micronodule in the right middle lobe adjacent to the minor fissure, axial image 54, sagittal image 111. A 0.4 cm noncalcified micronodule in the right lower lobe, axial image 66, sagittal image 63. A 0.6 cm subpleural noncalcified micronodule, left lower lobe, axial image 80, sagittal image 267. A 0.6 cm pleural-based noncalcified micronodule, left lower lobe, axial image 82, sagittal image 268. A 0.3 cm noncalcified micronodule in the left lower lobe, axial image 85. Pleura: No pneumothorax, pleural effusions, or abnormal pleural thickening. Upper Abdomen: Unremarkable Bones: Mild multilevel spondylosis. Soft tissues: A small 0.7 cm well-circumscribed nodule, 7 o'clock position of the right breast, axial image 74. Hardware: Unremarkable. CT/Chest WITH Contrast IMPRESSION: 1. No masses or other significant abnormalities in the mediastinum. 2. Multiple bilateral noncalcified micro nodules. Consider 3 to 6 month follo w-up low-dose CT chest for surveillance. 3. Small 0.7 cm nodule in the right breast, 7 o'clock. Consider mammography f or further evaluation if indicated. 4. Other nonacute findings detailed above. Reading Location: [place] [id number]
[2024-12-13 11:56] LABS: Absolute Lymphocyte Count 1.28 X10^3/uL (0.83-4.51); Absolute Neutrophil Count 6.1 X10^3/uL (2.0-7.7); Basophil# 0.05 X10^3/uL; Basophil% 0.6 % (0-1); Eosinophil# 0.19 X10^3/uL; Eosinophils% 2.3 % (0-5); Hematocrit 35.9 % (37-47); Hemoglobin 11.4 g/dL (12.0-15.0); Lymphocyte # 1.28 X10^3/ul (0.83-4.51); Lymphocyte % 15.4 % (19-41); Mean Corp Hgb Conc 31.8 g/dL (32-36); Mean Corpuscular Hgb 26.7 pg (27.0-32.0); Mean Corpuscular Volume 84.1 fL (81-99); Mean Platelet Vol. 8.9 fl (6.2-12.0); Monocyte# 0.59 X10^3/uL; Monocyte% 7.1 % (0-10); NRBC Flagged by Analyzer 0 % (0-5); Neutrophil % 73.3 % (47-70); Platelet Count 299 K/mm3 (150-450); RBC Distribution Width CV 15.9 % (11.6-14.6); RBC Distribution Width SD 49.5 fl (35.1-43.9); Red Blood Count 4.27 M/mm3 (4.2-5.4); White Blood Count 8.3 K/mm3 (4.4-11.0)
[2024-12-13 12:14] VITALS: BP 158/73; PULSE 70; RESP 20; O2SAT 96
[2024-12-13 12:38] LABS: Troponin T High Sensitivity 15 ng/L (<=14)
[2024-12-13 12:43] LABS: Anion Gap 13 (5-15); Calcium,Total 9.6 mg/dL (7.6-11.0); Carbon Dioxide 21.4 mmol/L (21.0-32.0); Chloride 103 mmol/L (98-108); Creatinine, Serum 1.09 mg/dL (0.70-1.20); EST Glomerular Filtration Rate 50 (>60); Estimated Creatinine Clearance 41.61 ml/min (50-250); Glucose 87 mg/dL (70-99); Potassium 4.3 mmol/L (3.3-5.1); Sodium Level 137 mmol/L (133-145)
[2024-12-13 13:00] VITALS: BP 176/70; PULSE 70; RESP 18; O2SAT 96
[2024-12-13 13:13] LABS: BUN 21 mg/dL (4-19); BUN/Creat Ratio 19.6 RATIO (10-20)
[2024-12-13 13:49] LABS: Troponin T High Sens 2 HR 15 ng/L (<=14)
[2024-12-13 14:11] VITALS: BP 162/77; PULSE 81; RESP 18; TEMP 36.6; O2SAT 99
== END 2024-12-13 14:25 | disposition home or self-care (01) ==
PROVIDERS: Emergency Provider Emergency Medicine; PCP Family Medicine; Visit Provider Emergency Medicine
DX: R07.89 Other chest pain (principal); I10 Essential (primary) hypertension; Z79.899 Other long term (current) drug therapy
CPT/HCPCS: 71045; 71260; 80048; 84484; 85025; 93005; 99283; Q9967; A4216

== ENCOUNTER → 2025-02-06 | Outpatient (CLI) | payer MEDICARE, OTHER, SELFPAY ==
--- NOTE | 2025-02-06 16:09 | RAD_ITS ---
PROCEDURE: HIP, UNI W/ PELVIS 2-3 VIEWS 02/06/2025 REASON FOR EXAM: HIP PAIN TECHNIQUE: Three views of the right hip COMPARISON: None FINDINGS: No displaced fracture. Postoperative changes from left total hip arthroplasty. There is jyer-cj-cenltbtp joint space narrowing in the right hip. Degenerative changes of the sacroiliac joints and lower lumbar spine. The soft tissues are unremarkable. RAD/HIP, UNI W/ Pelvis 2-3 Views IMPRESSION: Wabk-tk-mtjsqeyu osteoarthritis of the right hip. Reading Location: [id number]
== END | disposition home or self-care (01) ==
LOC: MTRAD 16:08
PROVIDERS: PCP Family Medicine; Referring Provider Anesthesiology Pain Medicine; Visit Provider Anesthesiology Pain Medicine
DX: M16.11 Unilateral primary osteoarthritis, right hip (principal)
CPT/HCPCS: 73502

== ENCOUNTER → 2025-04-10 | Outpatient (CLI) | payer MEDICARE, OTHER, SELFPAY ==
[2025-04-10 18:24] LABS: Hematocrit 39.5 % (37-47); Hemoglobin 12.7 g/dL (12.0-15.0); Immature Granulocytes Count 0.040 X10^3/uL (0.0-0.0); Mean Corp Hgb Conc 32.2 g/dL (32-36); Mean Corpuscular Volume 89.6 fL (81-99); Mean Platelet Vol. 9.5 fl (6.2-12.0); NRBC Flagged by Analyzer 0.2 % (0-5); Platelet Count 304 K/mm3 (150-450); RBC Distribution Width CV 14.0 % (11.6-14.6); RBC Distribution Width SD 45.9 fl (35.1-43.9); Red Blood Count 4.41 M/mm3 (4.2-5.4); White Blood Count 8.1 K/mm3 (4.4-11.0)
[2025-04-10 18:55] LABS: AST(SGOT) 25 U/L (<=31); Alanine Aminotransfer ALT/SGPT 16 U/L (<=34); Albumin, Serum 4.4 g/dL (3.4-4.8); Alkaline Phosphatase 60 U/L (35-104); Anion Gap 14 (5-15); BUN 27 mg/dL (4-19); BUN/Creat Ratio 23.5 RATIO (10-20); Calcium,Total 10.3 mg/dL (7.6-11.0); Carbon Dioxide 24.9 mmol/L (21.0-32.0); Chloride 102 mmol/L (98-108); Globulin 3.1 g/dL (2.2-4.2); Glucose 109 mg/dL (70-99); Potassium 4.5 mmol/L (3.3-5.1)
== END | disposition home or self-care (01) ==
LOC: BFHLAB 15:31
PROVIDERS: PCP Family Medicine; Visit Provider Family Medicine
DX: N18.31 Chronic kidney disease, stage 3a (principal); K21.9 Gastro-esophageal reflux disease without esophagitis
CPT/HCPCS: 36415; 80053; 85025

== ENCOUNTER 2025-06-06 11:11 | Emergency (ER) | payer MEDICARE, OTHER, SELFPAY ==
--- NOTE | 2025-06-06 | RAD_ITS ---
PROCEDURE: CHEST 1 VIEW (PORTABLE) 06/06/2025 REASON FOR EXAM: PALPITATIONS TECHNIQUE: Frontal view of the chest. COMPARISON: 12/13/2024 FINDINGS: Hardware: EKG leads overlie the chest Heart: The heart size is normal. Lungs: The lungs are clear. Bones: Degenerative changes are identified within the thoracic spine. Other: RAD/Chest 1 View (Portable) IMPRESSION: No acute pulmonary process Reading Location: [id number]
[2025-06-06 11:12] VITALS: BP 142/100; PULSE 72; RESP 20; TEMP 36.7; O2SAT 98; BMI 27.7
--- NOTE | 2025-06-06 12:02 | EKG12_ITS ---
Test Reason : PALP Blood Pressure : */* mmHG Vent. Rate : 79 BPM Atrial Rate : 97 BPM P-R Int : 216 ms QRS Dur : 108 ms QT Int : 390 ms P-R-T Axes : * -43 90 degrees QTcB Int : 447 ms Sinus rhythm with marked sinus arrhythmia with 1st degree A-V block with Premature supraventricular complexes Left axis deviation Left ventricular hypertrophy with repolarization abnormality ( R in aVL , [place] product ) Cannot rule out Septal infarct (cited on or before 13-Dec-2024) Abnormal ECG Confirmed by Atilio Montana ([id number]), publishing editor RENETTA LOPEZ ([id number]) on 06/08/2025 7:15:11 AM Referred By: Confirmed By: Atilio Montana
--- NOTE | 2025-06-06 12:03 | EX.ED.DYSGE1 ---
HPI History of Present Illness Chief Complaint: Palpitations Detail of Chief Complaint: Concern for atrial fibrillation Informant: patient Narrative Narrative: Patient presents to the emergency department from pain management physician's office where she was to have a back injection today. She was noted to have an irregular heart rhythm and there was concern for atrial fibrillation. Patient tells me she has no history of A-fib. She does not feel any palpitations and she is not having chest pain or racing heart. Denies recent illness. She states a few weeks ago she had some discomfort in her jaw and some slight chest discomfort that lasted about 2 minutes or so and then resolved. She has no heart history otherwise. [facility] Medical History (Updated 06/06/25 @ 13:[address] China Zaldivar, DO) Anxiety Atrial fibrillation Hypertension Lung nodule Subclinical hypothyroidism Obesity Premature atrial contractions Premature ventricular contractions Fibromyalgia DDD (degenerative disc disease) Depression IBS (irritable bowel syndrome) KEARA (obstructive sleep apnea) History of breast cancer History of depression Benign essential hypertension Home Medications ?Medication ?Instructions ?Recorded ?Last Taken ?Type venlafaxine 150 mg 150 mg PO DAILY 08/05/15 12/12/24 History capsule,extended release 24 hr amitriptyline 25 mg tablet 25 mg PO QHS PRN sleep 01/24/20 Unknown History losartan 50 mg tablet 50 mg PO DAILY 01/24/20 12/12/24 History cholecalciferol (vitamin D3) 25 25 mcg PO DAILY 08/22/20 Unknown History mcg (1,000 unit) capsule omeprazole 40 mg capsule,delayed 40 mg PO DAILY 09/12/24 12/12/24 History release ferrous sulfate 325 mg (65 mg 325 mg PO DAILY 12/13/24 12/12/24 History iron) tablet (Feosol) magnesium 250 mg tablet 250 mg PO DAILY 12/13/24 12/12/24 History Allergy/AdvReac Type Severity Reaction Status Date / Time lisinopril AdvReac Mild Other-cough Verified 06/06/25 11:12 Family History Mother CVA (cerebral vascular accident) Alzheimer disease Sister CAD (coronary artery disease) Father Kidney failure Surgical History History of lumpectomy of both breasts History of left heart catheterization (08/06/15) Cataract extraction status of right eye History of hysterectomy Social History Smoking Status: Never smoker second hand exposure: No alcohol intake: never substance use type: does not use ROS ROS ED ROS Narrative Concern for atrial fibrillation Review of Systems ROS Unobtainable: other Constitutional Constitutional ED: Reports lethargy; Denies chills, fever(s), sweats or weight loss Eyes Eyes: Denies blurry vision, change in vision or diplopia ENT ENT ED: Denies rhinorrhea or sore throat Cardiovascular Cardiovascular: Denies chest pain, orthopnea, palpitations or racing heartbeat Respiratory/Chest Respiratory/Chest: Denies cough, dyspnea, dyspnea on exertion, orthopnea or sputum Gastrointestinal Gastrointestinal: Denies abdominal pain, diarrhea, nausea or vomiting Genitourinary Genitourinary ED: Denies dysuria, hematuria or urinary frequency Musculoskeletal Musculoskeletal: Denies arthralgias, back pain, myalgias or neck pain Integumentary Denies abscess, Abrasions or rash Neurologic Neurologic: Denies headache(s) or weakness Psychiatric Psychiatric: Denies anxiety, depression or suicidal thoughts Endocrine Endocrinology: Denies polydipsia, polyphagia or polyuria Hematologic/Lymphatic Hematologic/Lymphatic: Denies easy bleeding, easy bruising or lymphadenopathy Allergic/Immunologic Allergic/Immunologic ED: Denies mouth swelling, tongue swelling or urticaria EXAM Physical Exam Const Vital Signs: 06/06/25 11:12 Temperature 98.1 F Temperature Source Temporal Pulse Rate 72 Respiratory Rate 20 H Blood Pressure 142/100 H Blood Pressure Mean 114 Pulse Ox 98 Positive well nourished and well developed General Appearance ED: well developed and NAD HEENT Reports TM's clear and moist mucous membranes normocephalic and atraumatic; Negative for trauma or tenderness Tympanic Membrane ED: Yes TM's clear Eyes PERRL and EOMs intact bilaterally General Eye ED: Negative for pale conjunctiva or scleral icterus Neck no lymphadenopathy, supple and no JVD General: Negative for tenderness Chest Wall inspection of chest normal and palpation of chest normal Chest: Negative for tenderness Resp normal respiratory effort and clear to auscultation bilaterally Effort and Inspection: Negative for respiratory distress or pain with movement Auscultation: Negative for rhonchi, wheezes or diminished lung sounds Cardio regular rate, regular rhythm, S1 normal heart sound, S2 normal heart sound and no murmurs Rhythm: abnormal rhythm regularly irregular Peripheral Pulses: pulses 2+ throughout GI normal to inspection, nondistended, normoactive bowel sounds, soft to palpation, non-tender, non-distended and no masses Back/Spine no CVA tenderness and no thoracic nor lumbar tenderness Extremity normal to inspection General Extremety ED: Negative for edema General Extremity: Negative for edema Neuro oriented x3, CN's II-XII intact bilaterally, no sensory deficits noted and gait normal Sensorium / Orientation: awake, alert, oriented to person, oriented to place and oriented to time Motor Exam: strength 5/5 throughout and strength abnormal Psych mental status grossly normal Skin no rashes or lesions noted and no wounds MDM MDM MDM Narrative Medical decision making narrative: Patient presents to the emergency department at the request of her pain management doctor who is getting ready to do a back injection for the patient and it was noted that she had an irregular rhythm on the monitor and they referred her to the emergency department for concern for atrial fibrillation. Patient really has no complaints. IV line established. EKG obtained showed a sinus rhythm with a rate of 79 bpm with first-degree AV block and PACs. Patient had an old EKG that was compared to this EKG from December 13, 2024 and she had the frequent premature atrial contractions at that time as well. CBC with differential was unremarkable. Chemistries unremarkable. Troponin was slightly elevated at 20 however during her last visit she had a slight elevation in her troponin at 15. I do not think she is having an acute coronary syndrome. At this point she will be discharged to home and advised to follow-up with pain management as instructed. Lab Data Attestation: I reviewed the patient's lab results. Labs: Laboratory Results - last 24 hr 06/06/25 11:40 WBC 7.2 RBC 4.01 L Hgb 12.0 Hct 36.1 L MCV 90.0 MCH 29.9 MCHC 33.2 RDW Std Deviation 43.6 RDW Coeff of Christa 13.2 Plt Count 282 MPV 8.5 Immature Gran % (Auto) 0.300 Neut % (Auto) 69.1 Lymph % (Auto) 20.3 [place] % (Auto) 7.1 Eos % (Auto) 2.5 Baso % (Auto) 0.7 Absolute Neuts (auto) 5.0 Absolute Lymphs (auto) 1.45 Nucleated RBC % 0 Sodium 141 Potassium 3.9 Chloride 105 Carbon Dioxide 22.4 Anion Gap 13 BUN 19 Creatinine 1.08 Estim Creat Clear Calc 40.15 L Est GFR (MDRD) Non-Af 50 L BUN/Creatinine Ratio 18.0 Glucose 91 Calcium 9.5 Troponin T High Sens 20 H D Radiography Diagnostic Testing: Clinical Impression(s) from Imaging Studies Chest X-Ray 06/06/25 00:00 IMPRESSION: No acute pulmonary process Reading Location: [facility] 1 view chest x-ray obtained interpreted by myself as no evidence of infiltrate or pneumothorax or acute disease process. Radiology in agreement. EKG Initial EKG: Attestation: I personally reviewed and interpreted this EKG as follows: Comments: Sinus rhythm with ventricular rate of 79 bpm with a first-degree AV block and frequent PACs Discharge Plan Triage Chief Complaint: Palpitations ED Provider: China Zaldivar Dx/Rx/DC Orders Clinical Impression: Premature atrial contractions Instructions: ED Heart Palpitations Prescriptions: No Action losartan 50 mg tablet 50 mg PO DAILY cholecalciferol (vitamin D3) 25 mcg (1,000 unit) capsule 25 mcg PO DAILY venlafaxine 150 MG capsule 150 mg PO DAILY amitriptyline 25 mg tablet 25 mg PO QHS PRN (Reason: sleep) omeprazole 40 mg capsule,delayed release(DR/EC) 40 mg PO DAILY ferrous sulfate [Feosol] 325 mg (65 mg iron) tablet 325 mg PO DAILY magnesium 250 mg tablet 250 mg PO DAILY Primary Care Provider: Kathy Meza Referrals: Kathy Meza MD [Primary Care Provider, Family Practice] - 3-5 Days Print Language: Burkinan Disposition Disposition: Home, Self Care
[2025-06-06 12:22] LABS: Hematocrit 36.1 % (37-47); Hemoglobin 12.0 g/dL (12.0-15.0); Immature Granulocytes Count 0.020 X10^3/uL (0.0-0.0); Mean Corp Hgb Conc 33.2 g/dL (32-36); Mean Corpuscular Volume 90.0 fL (81-99); Mean Platelet Vol. 8.5 fl (6.2-12.0); NRBC Flagged by Analyzer 0 % (0-5); Platelet Count 282 K/mm3 (150-450); RBC Distribution Width CV 13.2 % (11.6-14.6); RBC Distribution Width SD 43.6 fl (35.1-43.9); Red Blood Count 4.01 M/mm3 (4.2-5.4); White Blood Count 7.2 K/mm3 (4.4-11.0)
[2025-06-06 12:57] LABS: Troponin T High Sensitivity 20 ng/L (<=14)
[2025-06-06 12:59] LABS: Anion Gap 13 (5-15); BUN 19 mg/dL (4-19); BUN/Creat Ratio 18.0 RATIO (10-20); Calcium,Total 9.5 mg/dL (7.6-11.0); Carbon Dioxide 22.4 mmol/L (21.0-32.0); Chloride 105 mmol/L (98-108); Estimated Creatinine Clearance 40.15 ml/min (50-250); Glucose 91 mg/dL (70-99); Potassium 3.9 mmol/L (3.3-5.1)
[2025-06-06 13:40] VITALS: BP 173/66; PULSE 71; RESP 16; TEMP 36.7; O2SAT 98
== END 2025-06-06 13:40 | disposition home or self-care (01) ==
PROVIDERS: Emergency Provider Emergency Medicine; PCP Family Medicine; Visit Provider Emergency Medicine
DX: I49.1 Atrial premature depolarization (principal); I10 Essential (primary) hypertension; Z79.899 Other long term (current) drug therapy
CPT/HCPCS: 36415; 71045; 80048; 84484; 85025; 93005; 99283; A4216